=== PATIENT | male | born 1960 | race Caucasian/White ===

== ENCOUNTER 2016-09-05 20:59 | Inpatient (IN) | payer MEDICAID ==
[~2016-09-05 20:59] MED LIST: MORPHINE SULFATE 4 MG/ML SYRINGE IV PRN; NALOXONE 0.4 MG/ML 1 ML VIAL IV PRN; SODIUM CHLORIDE 0.9% 250 ML IV ONE
[2016-09-05] MEDS ORDERED: ASPIRIN 81 MG CHEW PO STA (21:19)
[2016-09-05] MEDS ORDERED: MORPHINE SULFATE 4 MG/ML SYRINGE IVP STA ×2 (21:19→21:28)
[2016-09-05] MEDS ORDERED: ATORVASTATIN 80 MG TAB PO STA (21:19)
[2016-09-05] MEDS ORDERED: NITROGLYCERIN OINT 1 INCH/GM PACKET TOPICAL STA (21:19)
[2016-09-05] MEDS ORDERED: HEPARIN SODIUM,PORCINE 5,000 UNIT/ML 1 ML VIAL IV STA (21:19)
[2016-09-05] MEDS: SODIUM CHLORIDE 0.9% 500 ML IV STA ×2 (21:24→21:30)
[2016-09-05] MEDS ORDERED: SODIUM CHLORIDE 0.9% 500 ML IV STA (21:28)
[2016-09-05 21:32] LABS: Aty Lym Flag Slight; CH 30.1; CHCM 34.2; HCT 43.3 % (39.0-53.0); HDW 2.45; HGB 14.6 gm/dL (13.0-17.5); MCH 29.9 pg (25.0-35.0); MCHC 33.7 g/dL (31.0-37.0); MCV 88.5 fL (80.0-100.0); Mean Platelet Volume 6.9; WBC 6.2 k/uL (3.8-10.6); WBC (Perox) 6.22
--- NOTE | 2016-09-05 21:32 | ED ---
Chest Pain HPI - General Chief Complaint: Chest Pain Stated Complaint: Chest Pain Source: patient Mode of arrival: wheelchair Limitations: no limitations - History of Present Illness Initial Comments: Had a chest And 7 PM today chest pain now into his neck he got nauseous cold sweats denies any previous history of heart disease no history of MIs no stents no history of congestive heart failure, only surgery he had in the past several was a left clavicle he had internal fixation for his left clavicle area denies any headaches no neck stiffness no abdominal pain no frequency urgency dysuria no signs of any TIA or CVA - Related Data Home Medications Medication Instructions Recorded Confirmed Lisinopril [Zestril] 10 mg PO HS 11/08/15 09/05/16 Simvastatin [Zocor] 40 mg PO HS 11/08/15 09/05/16 Allergies Allergy/AdvReac Type Severity Reaction Status Date / Time No Known Allergies Allergy Verified 09/05/16 21:46 Review of Systems ROS Statement: Those systems with pertinent positive or pertinent negative responses have been documented in the HPI. ROS Other: All systems not noted in ROS Statement are negative. EKG Findings - EKG Comments: EKG Findings:: , EKG shows a ventricular rate of 46 OR interval is 176 QRS duration is 100 QT/QTc is 4/393, review of this EKG shows a STEMI in lead II, III, and F he aVF also noticed some T-wave inversion in lead 1 and lead 2 and lead [address] depression as well also ST depression in V4 Past Medical History Past Medical History: Hyperlipidemia, Hypertension History of Any Multi-Drug Resistant Organisms: None Reported Past Surgical History: Orthopedic Surgery Additional Past Surgical History / Comment(s): LEFT CLAVICLE SX Past Anesthesia/Blood Transfusion Reactions: No Reported Reaction Past Psychological History: No Psychological Hx Reported Smoking Status: Former smoker Past Alcohol Use History: Occasional Additional Past Alcohol Use History / Comment(s): QUIT SMOKING 2008, STARTED AGE 23 (1983) SMOKED 1PPD Past Drug Use History: None Reported General Exam - General Exam Comments Initial Comments: General: The patient is awake and alert, in no distress, and does not appear acutely ill. In severe distress Skin: Skin is warm and dry and no rashes or lesions are noted. Eye: Pupils are equal, round and reactive to light, extra-ocular movements are intact; there is normal conjunctiva bilaterally. Ears, nose, mouth and throat: There are moist mucous membranes and no oral lesions. Neck: The neck is supple, there is no tenderness or JVD. Cardiovascular: There is a regular rate and rhythm. No murmur, rub or gallop is appreciated. Respiratory: To auscultation bilateral, no wheezing no rhonchi no distress respiratory jeffers noticed Gastrointestinal: Soft, non-distended, non-tender abdomen without masses or organomegaly noted. There is no rebound or guarding present. Bowel sounds are unremarkable. Back: There is no tenderness to palpation in the midline. There is no obvious deformity. Musculoskeletal: Normal ROM, no tenderness, There is no pedal edema. There is no calf tenderness or swelling. No cords were appreciated. Neurological: CN II-XII intact, Cranial nerves III through XII are intact. There are no obvious motor or sensory deficits. Coordination appears grossly intact. Speech is normal. Psychiatric: Cooperative, appropriate mood & affect, normal judgment. Limitations: no limitations Course Vital Signs 09/05/16 09/05/16 09/05/16 21:03 21:17 21:21 Temperature 97.2 F L Pulse Rate 58 L 64 73 Respiratory 18 18 18 Rate Blood Pressure 131/77 137/80 150/72 O2 Sat by Pulse 96 97 98 Oximetry 09/05/16 09/05/16 09/05/16 21:26 21:31 21:41 Temperature Pulse Rate 74 62 51 L Respiratory 18 20 18 Rate Blood Pressure 129/70 140/73 146/75 O2 Sat by Pulse 96 98 100 Oximetry 09/05/16 21:44 Temperature Pulse Rate 66 Respiratory 18 Rate Blood Pressure 146/78 O2 Sat by Pulse [address] Spoke with the Dr. Adams vocational nurse continuous absorption process operator and now be advised to activate the Phlebotomist Lab Assistant wouldn't give him aspirin he was giving a bolus of heparin 4000 units and infusion per Dr. Fox advised him to get her Lipitor 80 mg by mouth and Fritos a few repeat dose dosage of morphine to make him pain-free he is hemodynamically fine her chest x-ray and show any congestive heart failure and we are doing the serial EKGs - Reevaluation(s) Reevaluation #1: 09/05/16 21:36 Second EKG showed a ventricular rate of 61 OR interval 194 QRS duration 94 QT/ QTc is 426/426, examination of the second EKG showed changes got bit worse and to 3 and aVF and the ST depression and T-wave inversion in lead to be 1 week to week 3 V4 V5 and V6, worse on the first EKG Critical Care Time Total Critical Care Time: 35 Critical Care Time: As documented earlier serial EKGs aspirin morphine heparin bolus not the infusion cardiac cath lab radiology technologist is being activated as we as we speak he has some fluid bolus ongoing and the x-ray ruled out congestive heart failure Disposition Clinical Impression: STEMI (ST elevation myocardial infarction) Disposition: ADMITTED IP TO THIS HOSP Condition: Good Referrals: Imtiaz Sierra MD [Primary Care Provider] - 1-2 days
[2016-09-05] MEDS ORDERED: ONDANSETRON 4 MG/2 ML VIAL IVP STA (21:35)
[2016-09-05 21:37] LABS: ALT 43 U/L (21-72); AST 18 U/L (17-59); Alkaline Phosphatase 65 U/L (38-126); Anion Gap 11 mmol/L; Blood Urea Nitrogen 18 mg/dL (9-20); Calcium 9.6 mg/dL (8.4-10.2); Carbon Dioxide 25 mmol/L (22-30); Chloride 101 mmol/L (98-107); Glucose 133 mg/dL (74-99); Non-African American GFR(MDRD) >60 (>60 ml/min/1.73 sqM); Potassium 3.5 mmol/L (3.5-5.1); Sodium 137 mmol/L (137-145); Total Bilirubin 1.3 mg/dL (0.2-1.3); Total Protein 7.3 g/dL (6.3-8.2)
[2016-09-05 21:46] LABS: INR 1.1 (<1.1); Prothrombin Time 10.7 sec (9.0-12.0)
--- NOTE | 2016-09-05 21:46 | XR ---
EXAMINATION TYPE: XR chest 1V portable DATE OF EXAM: 09/05/2016 9:30 PM COMPARISON: NONE HISTORY: Chest pain TECHNIQUE: Single frontal view of the chest is obtained. FINDINGS: There is no heart failure nor confluent pneumonic infiltrate. There are chest leads. Costo phrenic angles are clear. There is a left sided clavicle plate with screws fixing an old fracture. IMPRESSION: No active cardiopulmonary disease.
[2016-09-05 21:50] LABS: Add Differential Manual Differential; Partial Thromboplastin Time 20.3 sec (22.0-30.0)
[2016-09-05 21:55] LABS: Manual Review Performed; Nucleated Red Blood Cells 0 /100 WBC (0-0); Polychromasia Present; Total Cells Counted 100
[2016-09-05] MEDS ORDERED: fentaNYL (PF) 50 MCG/ML 2 ML AMP ONE (21:58)
[2016-09-05] MEDS ORDERED: LIDOCAINE 2% INJ 20 MG/ML SQ ONE (21:59)
[2016-09-05] MEDS ORDERED: fentaNYL (PF) 50 MCG/ML 2 ML AMP IV ONE (22:00)
[2016-09-05 22:02] LABS: Creatine Kinase MB 1.2 ng/mL (0.0-2.4)
[2016-09-05] MEDS ORDERED: SODIUM CHLORIDE 0.9% 1,000 ML IV ONE (22:02)
[2016-09-05 22:03] LABS: Troponin I 0.101 ng/mL (0.000-0.034)
[2016-09-05] MEDS ORDERED: BIVALIRUDIN 250 MG in SODIUM CHLORIDE 0.9% 50 ML IV ONE (22:06)
[2016-09-05] MEDS ORDERED: BIVALIRUDIN BOLUS 250 MG/50 ML IV ONE (22:06)
[2016-09-05] MEDS ORDERED: PRASUGREL 10 MG TAB ONE (22:07)
[2016-09-05] MEDS ORDERED: PRASUGREL 10 MG TAB PO ONE (22:08)
[2016-09-05] MEDS ORDERED: NITROGLYCERIN 1000MCG/10ML SYRINGE INTRACORON ONE (22:20)
[2016-09-05] MEDS ORDERED: NITROGLYCERIN SL TABS 0.4 MG TAB SUBLINGUAL PRN (22:40)
[2016-09-05] MEDS ORDERED: MAG HYDROX/AL HYDROX/SIMETH 30 ML CUP PO PRN (22:40)
[2016-09-05] MEDS ORDERED: ATROPINE SULFATE 0.1 MG/ML 10ML SYRINGE IV PRN (22:40)
[2016-09-05] MEDS ORDERED: RX INFO: IV CONTRAST WAS GIVEN 1 EACH MISC MISCELLANE PRN (22:40)
[2016-09-05] MEDS ORDERED: IODIXANOL 320 MG/ML 100 ML INTRAARTER ONE (22:44)
[2016-09-05] MEDS ORDERED: SODIUM CHLORIDE 0.9% 1,000 ML IV SCH (22:45)
[2016-09-05] MEDS ORDERED: METOPROLOL TARTRATE 25 MG TAB PO SCH (22:45)
[2016-09-05] MEDS ORDERED: ACETAMINOPHEN TAB 325 MG TAB PO PRN (22:53)
[2016-09-05] MEDS ORDERED: MORPHINE SULFATE 4 MG/ML SYRINGE IV PRN (22:53)
[2016-09-05] MEDS ORDERED: NALOXONE 0.4 MG/ML 1 ML VIAL IV PRN (22:53)
[2016-09-05] MEDS ORDERED: NITROGLYCERIN SL TABS 0.4 MG TAB SUBLINGUAL ONE ×3 (23:21→23:36)
[2016-09-05] MEDS ORDERED: HEPARIN SODIUM 1,000 UNIT/ML VIAL ONE ×2 (23:27→23:49)
[2016-09-05] MEDS ORDERED: LIDOCAINE 2% INJ 20 MG/ML (20 ML MDV) ONE (23:45)
[2016-09-05] MEDS ORDERED: HEPARIN SODIUM 1,000 UNIT/ML VIAL IV ONE (23:52)
[2016-09-05] MEDS ORDERED: TIROFIBAN 12.5MG-250ML NS 250 ML IV ONE (23:53)
[2016-09-05] MEDS ORDERED: TIROFIBAN BOLUS 12.5MG/250 ML BAG IV ONE (23:59)
[2016-09-06] MEDS ORDERED: MAG HYDROX/AL HYDROX/SIMETH 30 ML CUP PO PRN (00:25)
[2016-09-06] MEDS ORDERED: ATROPINE SULFATE 0.1 MG/ML 10ML SYRINGE IV PRN (00:25)
[2016-09-06] MEDS ORDERED: NITROGLYCERIN SL TABS 0.4 MG TAB SUBLINGUAL PRN (00:25)
[2016-09-06] MEDS ORDERED: RX INFO: IV CONTRAST WAS GIVEN 1 EACH MISC MISCELLANE PRN (00:25)
[2016-09-06] MEDS ORDERED: SODIUM CHLORIDE 0.9% 1,000 ML IV SCH (00:30)
[2016-09-06] MEDS ORDERED: IOHEXOL 350 MG/ML 100 ML BOTTLE INJ ONE (00:31)
[2016-09-06 01:29] VITALS: BMI 29.5
[2016-09-06] MEDS ORDERED: ATROPINE SULFATE 0.1 MG/ML 10ML SYRINGE ONE (02:39)
[2016-09-06] MEDS: TIROFIBAN 12.5MG-250ML NS 250 ML IV SCH ×2 (03:30→06:43)
[2016-09-06 04:13] LABS: Basophils % (A) 0 %; CH 30.4; CHCM 34.1; Eosinophils % (A) 0 %; HCT 36.8 % (39.0-53.0); HDW 2.44; HGB 12.4 gm/dL (13.0-17.5); Luc # (Auto) 0.15; Luc % (Auto) 2; Lymphocytes # (A) 1.1 k/uL (1.0-4.8); Lymphocytes % (A) 13 %; MCH 30.1 pg (25.0-35.0); MCHC 33.6 g/dL (31.0-37.0); MCV 89.7 fL (80.0-100.0); Mean Platelet Volume 7.4; Monocytes # (A) 0.2 k/uL (0-1.0); Monocytes % (A) 3 %; Neutrophils # (A) 6.4 k/uL (1.3-7.7); Neutrophils % (A) 82 %; WBC 7.9 k/uL (3.8-10.6); WBC (Perox) 8.51
[2016-09-06 04:25] LABS: Anion Gap 11 mmol/L; Blood Urea Nitrogen 16 mg/dL (9-20); Calcium 8.9 mg/dL (8.4-10.2); Carbon Dioxide 22 mmol/L (22-30); Chloride 101 mmol/L (98-107); Glucose 170 mg/dL (74-99); Non-African American GFR(MDRD) >60 (>60 ml/min/1.73 sqM); Potassium 4.2 mmol/L (3.5-5.1); Sodium 134 mmol/L (137-145)
[2016-09-06] MEDS ORDERED: ATORVASTATIN 80 MG TAB PO SCH ×2 (09:00)
[2016-09-06] MEDS ORDERED: PRASUGREL 10 MG TAB PO SCH ×2 (09:00)
[2016-09-06] MEDS ORDERED: LISINOPRIL 2.5 MG TAB PO SCH ×2 (09:00)
[2016-09-06] MEDS ORDERED: ASPIRIN 81 MG CHEW PO SCH ×2 (09:00)
[2016-09-06] MEDS ORDERED: METOPROLOL TARTRATE 25 MG TAB PO SCH (09:00)
[2016-09-06] MEDS ORDERED: PANTOPRAZOLE 40 MG/10 ML VIAL IV SCH ×2 (09:00)
[2016-09-06] MEDS: ATORVASTATIN 80 MG TAB PO SCH (09:12)
[2016-09-06] MEDS: LISINOPRIL 5 MG TAB PO SCH (09:13)
[2016-09-06] MEDS: METOPROLOL TARTRATE 25 MG TAB PO SCH (09:13)
[2016-09-06] MEDS: ASPIRIN 81 MG CHEW PO SCH (09:13)
[2016-09-06] MEDS: PRASUGREL 10 MG TAB PO SCH (09:14)
--- NOTE | 2016-09-06 10:30 | ECHOF ---
Referral Reason:mi MEASUREMENTS -------- HEIGHT: 180.3 cm WEIGHT: 95.7 kg BP: 114/67 IVSd: 1.1 cm (0.6 - 1.1) LVIDd: 3.9 cm (3.9 - 5.3) LVPWd: 1.1 cm (0.6 - 1.1) IVSs: 1.8 cm LVIDs: 2.3 cm LVPWs: 1.8 cm Ao Diam: 3.0 cm (2.0 - 3.7) AV Cusp: 2.3 cm (1.5 - 2.6) LA Diam: 3.1 cm (2.7 - 3.8) MV EXCURSION: 19.089 mm (> 18.000) MV EF SLOPE: 146 mm/s (70 - 150) EPSS: 0.7 cm MV E Codey: 0.90 m/s MV DecT: 138 ms MV A Codey: 0.62 m/s MV E/A Ratio: 1.44 RAP: 5.00 mmHg RVSP: 16.80 mmHg FINDINGS -------- Sinus rhythm. This was a technically good study. The left ventricular size is normal. Left ventricular wall thickness is normal. Overall left ventricular systolic function is mildly impaired with, an EF between 45 - 50 %. Basal inferolateral hypokinesis. The right ventricle is normal in size and function. The left atrium is normal in size. The right atrium is normal in size. The aortic valve is trileaflet, and appears structurally normal. No aortic stenosis or regurgitation. The mitral valve is normal. There is trace mitral regurgitation. Trace tricuspid regurgitation present. The right ventricular systolic pressure, as measured by Doppler, is 16.80mmHg. There is no pulmonic regurgitation present. The aortic root size is normal. There is no pericardial effusion. CONCLUSIONS -------- 1. Sinus rhythm. 2. The right ventricular systolic pressure, as measured by Doppler, is 16.80mmHg. 3. There is no pulmonic regurgitation present. 4. The aortic root size is normal. 5. There is no pericardial effusion. 6. This was a technically good study. 7. Left ventricular wall thickness is normal. 8. Overall left ventricular systolic function is mildly impaired with, an EF between 45 - 50 %. 9. Basal inferolateral hypokinesis. 10. The left atrium is normal in size. 11. The aortic valve is trileaflet, and appears structurally normal. No aortic stenosis or regurgitation. 12. There is trace mitral regurgitation. 13. Trace tricuspid regurgitation present. BELT WORKER: Jacquelin Crawford RDCS
--- NOTE | 2016-09-06 10:38 | P.CNPUL ---
History of Present Illness Consult date: 09/06/16 Requesting physician: Marce Lawton Reason for consult: other (acute ST elevation myocardial infarction) Chief complaint: chest pain, angina History of present illness: this is a 55-year-old white male, presented to the ER with acute one hour history of stabbing chest pain at the base of his neck. Associated with diaphoresis, left arm numbness, and upon presentation patient was found to have ST elevation myocardial infarction in late to 3 aVF and some T-wave inversion in lead 12 and [address] depression in V4. Patient underwent cardiac catheterization upon presentation, and he underwent stenting of 2 blood vessels according to the patient, I am certain must have been the RCA for sure. No records in the chart at this point of the detailed cardiac cath procedure. I was notified about this patient by the ER physician and field marketing director hours, and I was made aware that the patient will be going from the Therapist Asst up to the intensive care unit. Upon my evaluation this morning, patient seems to be doing well, he is pain free, denies any nausea no vomiting no diaphoresis no headaches no blurred vision no dizziness no nausea no vomiting no abdominal pain. Patient is hemodynamically stable, sitting in bed, chest x-ray showed no evidence of any pulmonary edema or infiltrate. Patient had remote smoking history, quit many years ago, no family history of premature coronary artery disease, he does not drink any alcohol, is not diabetic, he is known to have history of hypertension and hypercholesterolemia. Patient is normally on this in September and simvastatin. And his primary care physician is Dr. cunningham Review of Systems 14 point review of systems were obtained, please refer to pertinent positives and negatives in HPI Past Medical History Past Medical History: Hyperlipidemia, Hypertension History of Any Multi-Drug Resistant Organisms: None Reported Past Surgical History: Orthopedic Surgery Additional Past Surgical History / Comment(s): LEFT CLAVICLE SX Past Anesthesia/Blood Transfusion Reactions: No Reported Reaction Past Psychological History: No Psychological Hx Reported Smoking Status: Former smoker Past Alcohol Use History: Occasional Additional Past Alcohol Use History / Comment(s): QUIT SMOKING 2008, STARTED AGE 23 (1981) SMOKED 1PPD Past Drug Use History: None Reported Medications and Allergies Home Medications Medication Instructions Recorded Confirmed Type Lisinopril [Zestril] 10 mg PO HS 11/08/15 09/05/16 History Simvastatin [Zocor] 40 mg PO HS 11/08/15 09/05/16 History Allergies Allergy/AdvReac Type Severity Reaction Status Date / Time No Known Allergies Allergy Verified 09/05/16 21:46 Physical Exam Vitals: Vital Signs Temp Pulse Resp BP Pulse Ox 09/06/16 05:15 60 14 114/67 96 09/06/16 05:00 57 L 12 107/63 97 09/06/16 04:45 58 L 12 106/62 97 09/06/16 04:30 63 13 104/54 95 09/06/16 04:15 61 12 112/63 96 09/06/16 04:00 98.0 F 60 17 111/59 96 09/06/16 03:45 64 12 105/63 96 09/06/16 03:30 65 17 114/65 97 09/06/16 03:15 63 17 106/56 95 09/06/16 03:00 66 15 108/58 96 09/06/16 02:45 65 14 112/61 96 09/06/16 02:30 67 12 115/64 96 09/06/16 02:15 64 12 118/67 97 09/06/16 02:00 62 12 104/63 96 09/06/16 01:45 63 14 126/70 96 09/06/16 01:30 70 14 134/73 97 09/06/16 01:15 71 15 122/67 96 09/06/16 01:00 69 13 139/73 96 09/06/16 00:55 20 96 Intake and Output 09/05/16 09/06/16 09/06/16 22:59 06:59 14:59 Intake Total 355 Output Total 500 Balance -145 Intake: IV 55 Intake, IV Titration 300 Amount Sodium Chloride 0.9% 1, 300 000 ml @ 100 mls/hr IV . Q10H [facility] Rx#:[id number] Output: Urine 500 Other: Weight 96.1 kg Physical Exam: Revealed a 55-year-old in no distress. HEENT:[Neck is supple.] [No neck masses.] [No thyromegaly.] [No JVD.] Chest: [Clear throughout, no crackles, no rhonchi, no wheezes.] Cardiac Exam: [Normal S1 and S2, no S3 gallop, no murmur.] Abdomen: [Soft, nontender, no megaly, no rebound, no guarding, normal bowel sounds.] Extremities: [No clubbing, no edema, no cyanosis.] Neurological Exam: [No focal neurologic deficit.] Results - Laboratory Findings CBC and BMP: 09/06/16 03:55 09/06/16 03:55 PT/INR, D-dimer PT 10.7 sec (9.0-12.0) 09/05/16 21:17 INR 1.1 (<1.1) 09/05/16 21:17 Abnormal lab findings: Abnormal Labs 09/06/16 09/06/16 09/06/16 03:55 03:55 03:55 RBC 4.10 L Hgb 12.4 L Hct 36.8 L Sodium 134 L Glucose 170 H Troponin I 1.360 H* 09/06/16 09:03 RBC Hgb Hct Sodium Glucose Troponin I 7.110 H* - Diagnostic Findings Chest x-ray: image reviewed (no evidence of active disease noted on the admission chest x-ray.) Assessment and Plan Plan: impression: [address] elevation myocardial infarction, status post stenting done by cardiology upon arrival to the ER. 2 history of hypertension, patient is maintained normally on this in September. 3 history of hypercholesterolemia, maintained on simvastatin. 4 remote smoking history, no symptoms to suggest underlying COPD. Patient quit smoking in 2008. Recommendation: Fully agree with the present treatment plan, patient is presently in the ICU, hemodynamically stable,reviewed all his meds including aspirin, Lipitor, Zestril, Protonix, Nitrostat, effient,Aggrastat,patient will likely be transferred to a cardiac floor in the next 24 hours. Not much to be added from my perspective at this point. Time with Patient: Greater than 30
--- NOTE | 2016-09-06 11:35 | CONS ---
Mr. Buck is a 55-year-old male with history of hypertension, hyperlipidemia, no prior history of coronary artery disease, who presented with symptoms of chest discomfort. This started about 2 hours prior to presentation to the emergency room of sudden onset, radiating to the neck and to the arms. In the emergency room, he was noted to have ST segment elevation involving the inferior leads. Patient has no prior documented history of cardiac disease. He is reasonably active physically, but recently has been complaining of dyspnea on exertion. He has no dizziness, palpitation or syncope. No PND, orthopnea or peripheral edema. His coronary risk factors are remarkable for hypertension and hyperlipidemia. He has stopped smoking many years ago. He has no diabetes. His medications at home include: 1. Lisinopril 10 mg daily and 2. Simvastatin 40 mg daily. There is no family history of premature coronary disease. REVIEW OF SYSTEMS: RESPIRATORY: There is no history of documented asthma, emphysema, bronchitis. GI: No GI bleeding. No peptic ulcer disease. : No dysuria or hematuria. NERVOUS: No stroke or seizure. PHYSICAL EXAMINATION: He is a 55-year-old male; alert, oriented, in no apparent distress. Blood pressure 120/70 with a heart rate in the 70s. HEAD: Normocephalic. EYES: Sclerae anicteric. NECK: Good carotid upstroke. No bruit. No jugular venous distention. LUNGS: Clear to auscultation. HEART: Regular rate and rhythm. S1, S2. No S3. No rub. ABDOMEN: Soft, nontender. Positive bowel sounds. No organomegaly. EXTREMITIES: No edema. Intact distal pulses. EKG revealed a sinus mechanism, rate of 66 with occasional PVCs, ST segment elevation in leads II, aVF with ST segment depression from V1 through V6 and I and aVL. IMPRESSION: 1. Acute ST segment elevation myocardial infarction in the inferior wall. 2. Hypertension. 3. Hyperlipidemia. RECOMMENDATIONS: In view of finding anatomy, I have recommended proceeding with emergent coronary angiography. The procedure, as well as the risks, benefits and complications, was discussed with the patient, who is in full understanding and agreement.
--- NOTE | 2016-09-06 11:39 | P.PN ---
Subjective Principal diagnosis: acute inferior STEMI this is a pleasant 55-year-old gentleman who presented to the hospital with a chest discomfort and was diagnosed with acute inferior ST elevation myocardial infarction. He underwent a heart catheterization and stenting of the RCA. Few hours after the procedure the patient had an acute stent thrombosis. He underwent successful stenting again of the RCA. The patient was transferred to the intensive care unit and was started on IIb IIIa inhibitors. From the cardiac vascular standpoint overview, he denies having any chest pain or discomfort or difficulty breathing at this point. The right groin is soft with mild tenderness. He underwent an echocardiogram which showed mildly impaired LV function with an ejection fraction between 45-50%. We will continue the patient on the current medical treatment which included dual antiplatelet therapy and statin as well as IIb IIIa inhibitors. Objective - Vital Signs Vital signs: Vital Signs Temp 98.0 F 09/06/16 04:00 Pulse 60 09/06/16 05:15 Resp 14 09/06/16 05:15 BP 114/67 09/06/16 05:15 Pulse Ox 96 09/06/16 05:15 Intake & Output 09/05/16 09/06/16 09/06/16 18:59 06:59 18:59 Intake Total 355 Output Total 500 Balance -145 Weight 96.1 kg Intake: IV 55 Intake, IV Titration 300 Amount Sodium Chloride 0.9% 1, 300 000 ml @ 100 mls/hr IV . Q10H [facility] Rx#:[id number] Output: Urine 500 - Constitutional General appearance: Present: no acute distress - Respiratory Respiratory: bilateral: CTA - Cardiovascular Rhythm: regular Heart sounds: normal: S1, S2 - Labs CBC & Chem 7: 09/06/16 03:55 09/06/16 03:55 Labs: Abnormal Lab Results - Last 24 Hours (Table) 09/06/16 09/06/16 09/06/16 Range/Units 03:55 03:55 03:55 RBC 4.10 L (4.30-5.90) m/uL Hgb 12.4 L (13.0-17.5) gm/dL Hct 36.8 L (39.0-53.0) % Sodium 134 L (137-145) mmol/L Glucose 170 H (74-99) mg/dL Troponin I 1.360 H* (0.000-0.034) ng/mL 09/06/16 Range/Units 09:03 RBC (4.30-5.90) m/uL Hgb (13.0-17.5) gm/dL Hct (39.0-53.0) % Sodium (137-145) mmol/L Glucose (74-99) mg/dL Troponin I 7.110 H* (0.000-0.034) ng/mL Assessment and Plan Plan: assessment #[address] elevation myocardial infarction #2 mild impaired LV function with an ejection fraction between 45-50% Plan Continue the current medical treatment Continue to be IIIa inhibitors until 2:00 this afternoon Risk factors modifications Follow-up with the patient
--- NOTE | 2016-09-06 12:34 | CC ---
DATE OF SERVICE: 09/05/2016 Mr. Buck is a 55-year-old male with a known history of hypertension, hyperlipidemia, who presented with symptoms of chest discomfort and evidence consistent with ST elevation myocardial infarction in the inferior leads. In view of that, recommendation made regarding coronary angiography. The procedure as well as the risks and complications were discussed with the patient who is in full understanding and agreement. PROCEDURE: Patient was brought to the laboratory assistant and received fentanyl and Benadryl after obtaining moderate conscious sedation state, using Xylocaine anesthesia and Seldinger technique, a 6 B[place]udian sheath was introduced in right femoral artery. Selective right and left coronary angiography were performed using 6 [place]udian 4 bend right and left Wendy catheters and 6 B[place]udian FR4 guiding catheter. Images of the coronary arteries were obtained. Following that, angioplasty and stenting of the right coronary artery were performed. Following that, a 6 B[place]ian tight pigtail catheter was introduced into the left ventricle and a 30 degree HOOKS view of the left ventricle was obtained. At the end of the procedure, catheter and sheath were removed and hemostasis was obtained was deployment of an Angio-Seal. There were no immediate complications. Patient is returned to his room in stable condition. FINDINGS: LEFT MAIN: This is a large-size vessel bifurcating into circumflex and left anterior descending coronary artery, left main coronary artery is without any significant obstructive coronary artery disease. LEFT ANTERIOR DESCENDING CORONARY ARTERY: This is a large-size vessel reaching toward the apex with a wrap around the apex segment, giving rise to a large diagonal branch. The left anterior descending coronary artery as well as its branches have no evidence of obstructive coronary artery disease. LEFT CIRCUMFLEX: This is a large nondominant vessel, giving rise to a large obtuse marginal branch. The left circumflex as well as its branches has no evidence of obstructive process. RIGHT CORONARY ARTERY: This vessel has a 99% stenosis in the mid segment with minimal antegrade flow. LEFT VENTRICULOGRAM: Left ventriculogram was performed in 30 degrees HOOKS view and revealed basal inferior wall hypokinesis. The ejection fraction is 45% to 50%. There was no significant mitral regurgitation. HEMODYNAMICS: There was no gradient across the aortic valve. The left ventricular end-diastolic pressure was 18 mmHg. CONCLUSION: 1. Subtotally occluded mid right coronary artery. 2. Mildly impaired left ventricular systolic function. RECOMMENDATIONS: In view of the findings and anatomy, I have recommended proceeding with angioplasty and stenting of the right coronary artery. The procedure as well as risks and complications were discussed with the patient who is in full understanding and agreement.
--- NOTE | 2016-09-06 12:38 | PTCA ---
DATE OF SERVICE: 09/05/2016 Mr. Buck is a 55-year-old male with a history of hypertension, hyperlipidemia, who presented with an acute ST segment elevation myocardial infarction in the inferior leads and underwent cardiac catheterization, was found to have subtotally occluded mid right coronary artery. In view of that, recommendation made regarding angioplasty and stenting. The procedure as well as risks and complications were discussed with the patient who is in full understanding and agreement. PROCEDURE: Using the 6 Liberian FR4 guiding catheter and after cannulating the right coronary ostium 0.014 balanced medium weight J-wire was advanced across the lesion, positioned distally, then export catheter was introduced. One run was performed. Following that, a 3.5 x 18 mm Xience Alpine stent was deployed. It was dilated at 14 atmospheres. Following that the balloon was removed and a 2.5 x 12 mm Trek balloon was advanced over the wire to the PLV where there was a residual clot. Without inflation of the balloon, the balloon was passed back and forth a few times, subsequently removed. Following that, after appropriate wait, the wire was withdrawn back in the guiding catheter. Images were obtained and repeated. Those images revealed stable successful stenting. Following that, left ventriculogram was performed. Following that, catheter and sheaths were removed. Hemostasis was obtained with deployment of an Angio-Seal. There were no immediate complications. Patient is returned to his room in stable condition. Of note, the patient had resolution of his chest discomfort as well as EKG changes at the end of the procedure. He received Angiomax as per protocol as well as oral loading dose of Effient. FINDINGS: Successful stenting of the mid right coronary artery with reduction in stenosis from 99% to 0%. RECOMMENDATION: Patient will be continued on aspirin, Effient, beta michelle, RENA inhibitor and statin. The importance of dual antiplatelet treatment were discussed with the patient and his family who is in full understanding and agreement. The duration of procedure is 71 minutes.
--- NOTE | 2016-09-06 12:41 | LTR ---
September 05, 2016 RE: Imtiaz Buck Dear Dr. Sierra: I had the pleasure of performing cardiac catheterization and coronary angioplasty and stenting on Mr. Buck at [facility] on September 05 and a full copy of procedure note will be forwarded to you. In brief, work he was found to have subtotally occluded mid right coronary artery, underwent successful stenting of that vessel using a drug-eluting stent. I am hopeful that this procedure will stabilized his status. Thank you for allowing me to participate in his care. Please feel free to call for questions. Sincerely, MARLON RUSSELL MD
--- NOTE | 2016-09-06 12:45 | PTCA ---
DATE OF SERVICE: Mr. Buck is a 55-year-old male who presented with an acute inferior myocardial infarction, underwent stenting of his right coronary artery. 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 After finishing the procedure, he was completely pain-free with resolution of his ST segment elevation, when he started to complain of chest discomfort again and there was re-elevation of his ST segment. In view of that, recommendation was made regarding repeat coronary angiography and angioplasty and stenting. The procedure as well as the risks and complications were discussed with the patient, who is in full understanding and agreement. PROCEDURE: Using Xylocaine anesthesia and Seldinger technique, a 6 Yoruba sheath was introduced into the left femoral artery. A 6 Yoruba FR4 guiding catheter was introduced into the system. After cannulating the right coronary ostium a 0.014 balanced medium weight J-wire was advanced across the lesion, positioned distally, then an Alma catheter was advanced. One run was done with removal of thrombotic material. Following that, a 3.0 x 15 mm Trek balloon was advanced and 2 inflations at a maximum of 14 atmospheres were done. Following that, the balloon was removed and a 3.5 x 15 mm Alpine Xience stent was deployed proximal to the first one and was dilated at 14 atmospheres and then inflation overlapping segment was done. Following that, the balloon and the guidewire were withdrawn back in the guiding catheter. Images were obtained. Repeated. Those images revealed stable successful stenting. At that point, the guiding catheter, the balloon and the guidewire were removed. The sheath was sutured in place. The patient is returned to his room in stable condition. Of note, patient was pain-free at the end of procedure, with resolution of his ST segment elevation. He has received heparin at 50 units/kg intravenously bolus as well as Aggrastat per protocol. RESULT: Successful stenting of the acute thrombosis of the mid right coronary artery with reduction in stenosis from 100 percent to 0%. RECOMMENDATION: Patient will be continued on aspirin, Effient, beta michelle, RENA inhibitor and statin. The importance of dual antiplatelet treatment was discussed with the patient and his family who was in full understanding and agreement. He will continue on the Aggrastat for a total of 18 hours.
--- NOTE | 2016-09-06 13:23 | PN ---
Mr. Buck is a 55-year-old male with known history of hypertension, hyperlipidemia, who presented with an acute inferior wall myocardial infarction and underwent stenting of the right coronary artery. He had an acute thrombosis shortly after and had recanalization of that vessel. He is doing quite well this morning. His breathing is stable, denying any chest pain. No dizziness. No palpitation. He denies any nausea. Hemodynamically stable. He is in sinus mechanism with no evidence of ventricle ectopic activity. He continues to be on Aggrastat drip. Otherwise, he is on aspirin once a day, Effient 10 mg daily, Lipitor 80 mg daily, lisinopril 5 mg daily and metoprolol 25 mg twice a day. PHYSICAL EXAMINATION: Blood pressure 114/60 with a heart rate in 60s. LUNGS: Clear. HEART: Regular rate rhythm. S1, S2, no S3, with systolic murmur. No diastolic murmur. No rub. ABDOMEN: Soft, nontender. EXTREMITIES: No edema. Right groin hematoma. Left groin with FemoStop in place. EKG reveals sinus mechanism, normal axis and intervals with no significant ST segment changes. BUN and creatinine 16 and 0.8. Troponin 1.3 and hemoglobin of 12.4. IMPRESSION: 1. Status post acute myocardial infarction with acute thrombosis and stenting of the right coronary artery. 2. Hypertension. RECOMMENDATIONS: Patient will continue on Aggrastat for a total of 18 hours. An echocardiogram with Doppler will be obtained today. His level of activity will be increased gradually. Depending on his progress, he may be able to transferred to the telemetry floor in the afternoon.
--- NOTE | 2016-09-06 14:37 | P.HPIM ---
History of Present Illness H&P Date: 09/06/16 Chief Complaint: Chest pain found to have a STEMI This is a pleasant 54-year-old gentleman patient of Dr. Sierra, he has underlying history of hyperlipidemia hypertension was her arthritis admitted from the emergency room with acute complaints of chest discomfort with regurgitation to the neck and the left arm, this started at 7 PM patient was getting off work however he had completed lifting boxes approximately between 40 -100 pounds which is his routine, chest pressure was persistent until he was evaluated in emergency room and was found to have STEMI involving the inferior leads. This is his first episode all of NE patient did not have any previous history of CHF diabetes mellitus CAD no previous arrhythmias, and a previous smoker, he quit 11 years ago. He was emergently sent to [facility] requiring angioplasty and stenting off the subtotally occluded mid right coronary artery using 3.5 x 18 mm X Xeince stent on 09/05/2016. 2 hours later patient complained off chest discomfort again and was found to have another with elevation of his ST segment, a repeat angiography with removal off thrombotic material and another X he had stent was deployed proximal to the first one. Subsequent he had successful stenting with reduction of coronary artery stenosis from 100% to 0, patient is placed on aspirin and Effient beta michelle RENA inhibitor and statin, he is maintain on Aggrastat for a total of 18 hours from the procedure . Patient remains in ICU currently stable without any chest discomfort, vital signs stable,. He underwent an echocardiogram which showed mildly impaired LV function with ejection fraction of 45-50% sinus rhythm there is basal inferolateral hypokinesis trace MR and trace TR normal aortic valve Review of Systems Constitutional: Reports as per HPI, Denies anorexia, Denies chills, Denies chronic headaches, Denies chronic pain, Denies daytime sleepiness, Denies fatigue, Denies fever, Denies lethargy, Denies malaise, Denies night sweats, Denies poor appetite, Denies sweats, Denies weakness, Denies weight gain, Denies weight loss Ears, nose, mouth and throat: Reports as per HPI, Denies ant. neck pain, Denies bleeding gums, Denies dental pain, Denies dysphagia, Denies epistaxis, Denies headache, Denies hoarseness, Denies mouth pain, Denies nasal congestion, Denies nasal discharge, Denies neck fullness/pressure, Denies neck lump, Denies nose pain, Denies odynophagia, Denies post-nasal drip, Denies sinus pain, Denies sinus pressure, Denies swelling in mouth, Denies swelling in throat, Denies sore throat, Denies vertigo, Denies voice changes Cardiovascular: Reports as per HPI, Reports chest pain, Denies claudication, Denies decreased exercise tolerance, Denies dyspnea on exertion, Denies edema, Denies high blood pressure, Denies irregular heart beat, Denies leg edema, Denies lightheadedness, Denies orthopnea, Denies palpitations, Denies paroxysmal nocturnal dyspnea, Denies phlebitis, Denies rapid heart beat, Denies shortness of breath, Denies syncope Respiratory: Reports as per HPI, Denies congestion, Denies cough, Denies cough with sputum, Denies dyspnea, Denies excessive sputum, Denies hemoptysis, Denies home oxygen, Denies pain, Denies pain on inspiration, Denies pleurisy, Denies respiratory infections, Denies sleep apnea, Denies snoring, Denies wheezing Gastrointestinal: Reports as per HPI, Denies abdominal pain, Denies belching, Denies bloating, Denies BRBPR, Denies change in bowel habits, Denies coffee ground emesis, Denies constipation, Denies diarrhea, Denies dyspepsia, Denies early satiety, Denies excessive gas, Denies heartburn, Denies hematemesis, Denies hematochezia, Denies indigestion, Denies jaundice, Denies lactose intolerance, Denies loss of appetite, Denies melena, Denies nausea, Denies vomiting Genitourinary: Reports as per HPI, Denies decreased libido, Denies difficulties fathering child, Denies discharge, Denies dysuria, Denies erectile dysfunction, Denies flank pain, Denies genital pain, Denies genital sores, Denies hematuria, Denies impotence, Denies incontinence, Denies kidney stones, Denies nocturia, Denies polyuria, Denies testicular lump, Denies testicular pain, Denies urinary frequency, Denies urinary hesitancy, Denies urinary retention Musculoskeletal: Reports as per HPI, Denies arm numbness/tingling, Denies atrophy, Denies fractures, Denies frequent falls, Denies gait dysfunction, Denies hot joints, Denies leg numbness/tingling, Denies limitation of motion, Denies loss of height, Denies low back pain, Denies morning stiffness, Denies muscle cramps, Denies muscle weakness, Denies myalgias, Denies neck pain, Denies neck stiffness, Denies prior amputations, Denies redness of joints, Denies shooting arm pain, Denies shooting leg pain Integumentary: Reports as per HPI, Denies acne, Denies boils, Denies brittle nails, Denies change in hair/nails, Denies color changes, Denies darkening of skin, Denies depigmentation, Denies dryness, Denies foot/leg ulcers, Denies growths, Denies hirsutism, Denies lesions, Denies onychomycosis, Denies pruritus , Denies rash, Denies sores, Denies striae, Denies unusual bruising, Denies wounds Neurological: Reports as per HPI, Denies aphasia, Denies ataxia, Denies balance difficulties, Denies burning pain, Denies change in mentation, Denies change in smell/taste, Denies change in speech, Denies confusion, Denies convulsions, Denies double vision, Denies gait dysfunction, Denies head injury, Denies headaches, Denies hearing difficulties, Denies lack of coordination, Denies loss of vision, Denies memory loss, Denies migraines, Denies motor disturbance, Denies numbness, Denies paralysis, Denies paresthesias, Denies seizures, Denies sensory deficit, Denies spasticity, Denies syncope, Denies tic, Denies tingling , Denies transient paralysis, Denies tremors, Denies vertigo, Denies weakness, Denies visual changes Psychiatric: Reports as per HPI, Denies anhedonia, Denies anxiety, Denies anxiety attacks, Denies change in appetite, Denies change in libido, Denies change in sleep habits, Denies confusion, Denies depression, Denies difficulty concentrating, Denies disorientation, Denies hallucinations, Denies hopelessness , Denies hypersomnia, Denies insomnia, Denies irritability, Denies memory loss, Denies mood swings, Denies paranoia, Denies sadness/tearfulness, Denies sleep disturbances, Denies suicidal ideation Endocrine: Reports as per HPI, Denies cold intolerance, Denies deepening of the voice, Denies excessive sweating, Denies excessive thirst, Denies fatigue, Denies flushing, Denies heat intolerance, Denies high blood sugars, Denies increase in ring/shoe/hat size, Denies low blood sugars, Denies nocturia, Denies palpitations, Denies polydipsia, Denies polyphagia, Denies polyuria, Denies proptosis, Denies recent glucocorticoid use, Denies thyroid mass, Denies weight change Hematologic/Lymphatic: Reports as per HPI, Denies easy bleeding, Denies easy bruising, Denies lymphadenopathy, Denies lymphedema, Denies thrombophilia Allergic/Immunologic: Denies as per HPI, Denies allergic rhinitis, Denies anaphylaxis, Denies angioedema, Denies gluten intolerance, Denies persistent infections, Denies seasonal allergies, Denies urticaria, Denies wheezing Past Medical History Past Medical History: Hyperlipidemia, Hypertension, Osteoarthritis (OA) History of Any Multi-Drug Resistant Organisms: None Reported Past Surgical History: Orthopedic Surgery Additional Past Surgical History / Comment(s): LEFT CLAVICLE SX Past Anesthesia/Blood Transfusion Reactions: No Reported Reaction Past Psychological History: No Psychological Hx Reported Smoking Status: Former smoker (With 11 years ago, started at age [age] per day) Past Alcohol Use History: Occasional Additional Past Alcohol Use History / Comment(s): QUIT SMOKING 2008, STARTED AGE 23 (1983) SMOKED 1PPD Past Drug Use History: None Reported - Past Family History Father Family Medical History: Cancer (Lung cancer at age 74), CVA/TIA Mother Family Medical History: Cancer (Gallbladder cancer at age 45) Brother(s) Family Medical History: Coronary Artery Disease (CAD) (Rheumatic fever), Diabetes Mellitus Sister(s) Family Medical History: No Reported History Daughter(s) Family Medical History: No Reported History Son(s) Family Medical History: No Reported History Medications and Allergies Home Medications Medication Instructions Recorded Confirmed Type Lisinopril [Zestril] 10 mg PO HS 11/08/15 09/05/16 History Simvastatin [Zocor] 40 mg PO HS 11/08/15 09/05/16 History Allergies Allergy/AdvReac Type Severity Reaction Status Date / Time No Known Allergies Allergy Verified 09/05/16 21:46 Physical Exam Vitals: Vital Signs Temp Pulse Resp BP Pulse Ox 03/24/17 05:15 60 14 114/67 96 09/06/16 05:00 57 L 12 107/63 97 09/06/16 04:45 58 L 12 106/62 97 09/06/16 04:30 63 13 104/54 95 09/06/16 04:15 61 12 112/63 96 09/06/16 04:00 98.0 F 60 17 111/59 96 09/06/16 03:45 64 12 105/63 96 09/06/16 03:30 65 17 114/65 97 09/06/16 03:15 63 17 106/56 95 09/06/16 03:00 66 15 108/58 96 09/06/16 02:45 65 14 112/61 96 09/06/16 02:30 67 12 115/64 96 09/06/16 02:15 64 12 118/67 97 09/06/16 02:00 62 12 104/63 96 09/06/16 01:45 63 14 126/70 96 09/06/16 01:30 70 14 134/73 97 09/06/16 01:15 71 15 122/67 96 09/06/16 01:00 69 13 139/73 96 09/06/16 00:55 20 96 Intake and Output 09/05/16 09/06/16 09/06/16 22:59 06:59 14:59 Intake Total 355 Output Total 500 Balance -145 Intake: IV 55 Intake, IV Titration 300 Amount Sodium Chloride 0.9% 1, 300 000 ml @ 100 mls/hr IV . Q10H [facility] Rx#:[id number] Output: Urine 500 Other: Weight 96.1 kg - Constitutional General appearance: average body habitus, cooperative, no acute distress - EENT Eyes: anicteric sclerae, EOMI, PERRLA, dentition normal, normal appearance ENT: hard of hearing, NA/AT, normal oropharynx - Neck Neck: no lymphadenopathy, normal ROM, no other, no rigidity, no stridor, no thyromegaly - Respiratory Respiratory: bilateral: CTA, negative: diminished, dullness, rales, rhonchi - Cardiovascular Rhythm: regular Heart sounds: normal: S1, S2 Abnormal Heart Sounds: no systolic murmur, no diastolic murmur, no rub, no S3 Gallop, no S4 Gallop, no click, no other - Gastrointestinal General gastrointestinal: normal bowel sounds, soft - Integumentary Integumentary: normal, normal turgor - Neurologic Neurologic: CNII-XII intact, focal deficits (None) - Musculoskeletal Musculoskeletal: gait normal, strength equal bilaterally Results CBC & Chem 7: 09/06/16 03:55 09/06/16 03:55 Labs: Abnormal Lab Results - Last 24 Hours (Table) 09/06/16 09/06/16 09/06/16 Range/Units 03:55 03:55 03:55 RBC 4.10 L (4.30-5.90) m/uL Hgb 12.4 L (13.0-17.5) gm/dL Hct 36.8 L (39.0-53.0) % Sodium 134 L (137-145) mmol/L Glucose 170 H (74-99) mg/dL Troponin I 1.360 H* (0.000-0.034) ng/mL Laboratory Results WBC 7.9 k/uL (3.8-10.6) 09/06/16 03:55 RBC 4.10 m/uL (4.30-5.90) L 09/06/16 03:55 Hgb 12.4 gm/dL (13.0-17.5) L 09/06/16 03:55 Hct 36.8 % (39.0-53.0) L 09/06/16 03:55 MCV 89.7 fL (80.0-100.0) 09/06/16 03:55 MCH 30.1 pg (25.0-35.0) 09/06/16 03:55 MCHC 33.6 g/dL (31.0-37.0) 09/06/16 03:55 RDW 13.0 % (11.5-15.5) 09/06/16 03:55 Plt Count 200 k/uL (150-450) 09/06/16 03:55 Neutrophils % 82 % 09/06/16 03:55 Neutrophils % (Manual) 47.0 % 09/05/16 21:17 Lymphocytes % 13 % 09/06/16 03:55 Lymphocytes % (Manual) 44.0 % 09/05/16 21:17 Monocytes % 3 % 09/06/16 03:55 Monocytes % (Manual) 9.0 % 09/05/16 21:17 Eosinophils % 0 % 09/06/16 03:55 Basophils % 0 % 09/06/16 03:55 Neutrophils # 6.4 k/uL (1.3-7.7) 09/06/16 03:55 Neutrophils # (Manual) 2.9 k/uL (1.3-7.7) 09/05/16 21:17 Lymphocytes # 1.1 k/uL (1.0-4.8) 09/06/16 03:55 Lymphocytes # (Manual) 2.7 k/uL (1.0-4.8) 09/05/16 21:17 Monocytes # 0.2 k/uL (0-1.0) 09/06/16 03:55 Monocytes # (Manual) 0.6 k/uL (0-1.0) 09/05/16 21:17 Eosinophils # 0.0 k/uL (0-0.7) 09/06/16 03:55 Basophils # 0.0 k/uL (0-0.2) 09/06/16 03:55 Nucleated RBCs 0 /100 WBC (0-0) 09/05/16 21:17 Manual Slide Review Performed 09/05/16 21:17 Polychromasia Present 09/05/16 21:17 PT 10.7 sec (9.0-12.0) 09/05/16 21:17 INR 1.1 (<1.1) 09/05/16 21:17 APTT 22.8 sec (22.0-30.0) 09/06/16 03:55 Sodium 134 mmol/L (137-145) L 09/06/16 03:55 Potassium 4.2 mmol/L (3.5-5.1) 09/06/16 03:55 Chloride 101 mmol/L (98-107) 09/06/16 03:55 Carbon Dioxide 22 mmol/L (22-30) 09/06/16 03:55 Anion Gap 11 mmol/L 09/06/16 03:55 BUN 16 mg/dL (9-20) 09/06/16 03:55 Creatinine 0.80 mg/dL (0.66-1.25) 09/06/16 03:55 Est GFR (MDRD) Af Amer >60 (>60 ml/min/1.73 sqM) 09/06/16 03:55 Est GFR (MDRD) Non-Af >60 (>60 ml/min/1.73 sqM) 09/06/16 03:55 Glucose 170 mg/dL (74-99) H 09/06/16 03:55 Calcium 8.9 mg/dL (8.4-10.2) 09/06/16 03:55 Total Bilirubin 1.3 mg/dL (0.2-1.3) 09/05/16 21:17 AST 18 U/L (17-59) 09/05/16 21:17 ALT 43 U/L (21-72) 09/05/16 21:17 Alkaline Phosphatase 65 U/L (38-126) 09/05/16 21:17 Total Creatine Kinase 124 U/L (55-170) 09/05/16 21:17 CK-MB (CK-2) 1.2 ng/mL (0.0-2.4) 09/05/16 21:17 CK-MB (CK-2) Rel Index 1.0 09/05/16 21:17 Troponin I 7.110 ng/mL (0.000-0.034) H* 09/06/16 09:03 Total Protein 7.3 g/dL (6.3-8.2) 09/05/16 21:17 Albumin 4.4 g/dL (3.5-5.0) 09/05/16 21:17 Thrombosis Risk Factor Assmnt - DVT/VTE Prophylaxis DVT/VTE Prophylaxis: Pharmacologic Prophylaxis ordered - Choose All That Apply Each Factor Represents 1 point: Acute NE, Age 41-60 years Other Risk Factors: No Other congenital or acquired thrombophilia - If yes, enter type in comment: No Thrombosis Risk Factor Assessment Total Risk Factor Score: 2 Thrombosis Risk Factor Assessment Level: Low Risk Assessment and Plan Plan: 1. STEMI involving inferior lead, requiring stent placement on mid RCA, and subsequent restenosis of the same segment secondary to thrombosis and repeat angiography required thrombus extraction and placement of another stent proximal to the previously stented vessel, performed Dr. Adams 09/05/2016, patient's requiring dual antiplatelets,, statin, RENA inhibitor, beta blockers are in place him a patient would be monitored in ICU and be evaluated for secondary arrhythmias. Aggrastat infusion is provided at 0.15 mcg/kg/m as recommended by cardiology. He is also on Effient 10 mg daily aspirin 81 mg daily Lipitor 80 mg daily nitro when necessary sublingual metoprolol 25 mg twice a day and lisinopril 5 mg daily. Patient would require O2 when necessary, and Colace 100 mg daily 2. Hyperlipidemia maintenance Lipitor increased to 80 mg daily 3. Hypertensive heart and vascular disease currently on lisinopril 5 mg daily and metoprolol 25 mg twice a day 4. Mild LV dysfunction related to acute NE, ejection fraction currently is 45- 50%, medications as mentioned above 5. GI prophylaxis DVT prophylaxis Lovenox 40 mg daily to be started , Pepcid Time with Patient: Greater than 30
[2016-09-06 14:50] LABS: Glucose,Whole Blood 158 mg/dL (75-99)
[2016-09-06] MEDS: DOCUSATE 100 MG CAP PO SCH (17:00)
[2016-09-06] MEDS ORDERED: NON-FORMULARY DRUG (Simvastatin [Zocor] 40 MG) PO SCH ×2 (21:00)
[2016-09-06] MEDS ORDERED: LISINOPRIL 10 MG TAB PO SCH ×2 (21:00)
[2016-09-06] MEDS ORDERED: FAMOTIDINE 20 MG TAB PO SCH (21:00)
[2016-09-06] MEDS: ACETAMINOPHEN TAB 325 MG TAB PO PRN (23:22)
[2016-09-07] MEDS: METOPROLOL TARTRATE 25 MG TAB PO SCH ×3 (03:53→21:08)
[2016-09-07 04:45] LABS: Basophils % (A) 0 %; CH 29.9; CHCM 33.8; Eosinophils # (A) 0.1 k/uL (0-0.7); Eosinophils % (A) 1 %; HCT 39.6 % (39.0-53.0); HDW 2.36; HGB 13.2 gm/dL (13.0-17.5); Luc % (Auto) 3; Lymphocytes # (A) 1.5 k/uL (1.0-4.8); Lymphocytes % (A) 24 %; MCH 29.6 pg (25.0-35.0); MCHC 33.3 g/dL (31.0-37.0); MCV 88.8 fL (80.0-100.0); Monocytes # (A) 0.4 k/uL (0-1.0); Monocytes % (A) 7 %; Neutrophils # (A) 4.1 k/uL (1.3-7.7); Neutrophils % (A) 65 %; RBC 4.46 m/uL (4.30-5.90); RDW 13.1 % (11.5-15.5); WBC 6.3 k/uL (3.8-10.6); WBC (Perox) 6.34
[2016-09-07 05:10] LABS: Anion Gap 9 mmol/L; Blood Urea Nitrogen 15 mg/dL (9-20); Calcium 9.3 mg/dL (8.4-10.2); Carbon Dioxide 25 mmol/L (22-30); Chloride 107 mmol/L (98-107); Glucose 121 mg/dL (74-99); Non-African American GFR(MDRD) >60 (>60 ml/min/1.73 sqM); Potassium 4.3 mmol/L (3.5-5.1); Sodium 141 mmol/L (137-145)
[2016-09-07] MEDS: ASPIRIN 81 MG CHEW PO SCH (08:15)
[2016-09-07] MEDS: PANTOPRAZOLE 40 MG TABLET PO SCH (08:15)
[2016-09-07] MEDS: DOCUSATE 100 MG CAP PO SCH (08:15)
[2016-09-07] MEDS: ATORVASTATIN 80 MG TAB PO SCH (08:15)
[2016-09-07] MEDS: PRASUGREL 10 MG TAB PO SCH (08:15)
[2016-09-07] MEDS: LISINOPRIL 5 MG TAB PO SCH (08:15)
[2016-09-07] MEDS ORDERED: ENOXAPARIN 40 MG/0.4 ML SYRINGE SQ SCH (09:00)
--- NOTE | 2016-09-07 11:24 | P.PN ---
Subjective Principal diagnosis: Acute ST elevation myocardial infarction this is a 55-year-old white male, presented to the ER with acute one hour history of stabbing chest pain at the base of his neck. Associated with diaphoresis, left arm numbness, and upon presentation patient was found to have ST elevation myocardial infarction in late to 3 aVF and some T-wave inversion in lead 12 and [address] depression in V4. Patient underwent cardiac catheterization upon presentation, and he underwent stenting of 2 blood vessels according to the patient, I am certain must have been the RCA for sure. No records in the chart at this point of the detailed cardiac cath procedure. 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 Upon my evaluation this morning, patient seems to be doing well, he is pain free, denies any nausea no vomiting no diaphoresis no headaches no blurred vision no dizziness no nausea no vomiting no abdominal pain. Patient is hemodynamically stable, sitting in bed, chest x-ray showed no evidence of any pulmonary edema or infiltrate. Patient had remote smoking history, quit many years ago, no family history of premature coronary artery disease, he does not drink any alcohol, is not diabetic, he is known to have history of hypertension and hypercholesterolemia. Patient is normally on this in September and simvastatin. And his primary care physician is Dr. cunningham Reevaluated today on 09/07/2016, patient seems to be doing well, patient had restenting of the RCA because he developed thrombosis of the initial stent. And he developed chest pain requiring restenting. Presently the patient is asymptomatic, remains in the ICU, no cough no wheezing no shortness of breath and no chest pain. Echocardiogram from yesterday showed mildly impaired left ventricle with ejection fraction of 45%. And there was evidence of basal inferolateral hypokinesis. Objective - Vital Signs Vital signs: Vital Signs Temp 99.7 F H 09/07/16 08:08 Pulse 50 L 09/07/16 11:00 Resp 12 09/07/16 11:00 BP 121/72 09/07/16 11:00 Pulse Ox 98 09/07/16 11:00 Intake & Output 09/06/16 09/07/16 09/07/16 18:59 06:59 18:59 Intake Total 1898.8 200 Output Total 0 0 Balance 1898.8 200 0 Weight 97.2 kg Intake: Intake, IV Titration 1648.8 Amount Sodium Chloride 0.9% 1, 700 000 ml @ 100 mls/hr IV . Q10H [facility] Rx#:[id number] Sodium Chloride 0.9% 1, 800 000 ml @ 100 mls/hr IV . Q10H [facility] Rx#:[id number] Tirofiban 12.5MG-250Ml Ns 148.8 250 ml @ 0.15 MCG/KG/MIN 18.37 mls/hr IV .[id number] [facility] Rx#:[id number] Oral 250 200 Output: Urine 0 0 Other: Voiding Method Toilet # Voids 1 1 - Exam Physical Exam: Revealed a 55-year-old in no distress HEENT:[Neck is supple.] [No neck masses.] [No thyromegaly.] [No JVD.] Chest: [Clear throughout, no crackles, no rhonchi, no wheezes.] Cardiac Exam: [Normal S1 and S2, no S3 gallop, 2/6 systolic murmur throughout the precordium Abdomen: [Soft, nontender, no megaly, no rebound, no guarding, normal bowel sounds.] Extremities: [No clubbing, no edema, no cyanosis.] Neurological Exam: [No focal neurologic deficit.] - Labs CBC & Chem 7: 09/07/16 04:17 09/07/16 04:17 Labs: Abnormal Lab Results - Last 24 Hours (Table) 09/06/16 09/07/16 Range/Units 00:48 04:17 Glucose 121 H (74-99) mg/dL POC Glucose (mg/dL) 158 H (75-99) mg/dL Assessment and Plan Plan: impression: [address] elevation myocardial infarction, status post stenting and restenting done by cardiology . 2 history of hypertension, patient is maintained normally on this in September. 3 history of hypercholesterolemia, maintained on simvastatin. 4 remote smoking history, no symptoms to suggest underlying COPD. Patient quit smoking in 2008. Recommendation: Continue present treatment plan, possibly transfer to a monitored bed on [facility] today, we'll see the patient on when necessary basis. Time with Patient: Less than 30
--- NOTE | 2016-09-07 11:42 | P.PN ---
Subjective Principal diagnosis: ST elevation DC. This is a pleasant 54-year-old gentleman patient of Dr. Sierra, he has underlying history of hyperlipidemia hypertension,osteoarthritis admitted from the emergency room with acute complaints of chest discomfort with regurgitation to the neck and the left arm, this started at 7 PM patient was getting off work however he had completed lifting boxes approximately between 40-100 pounds which is his routine, chest pressure was persistent until he was evaluated in emergency room and was found to have STEMI involving the inferior leads. This is his first episode all of [place] patient did not have any previous history of CHF diabetes mellitus CAD no previous arrhythmias, and a previous smoker, he quit 11 years ago. 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 2 hours later patient complained off chest discomfort again and was found to have another with elevation of his ST segment, a repeat angiography with removal off thrombotic material and another X he had stent was deployed proximal to the first one. Subsequent he had successful stenting with reduction of coronary artery stenosis from 100% to 0, patient is placed on aspirin and Effient beta michelle RENA inhibitor and statin, he is maintain on Aggrastat for a total of 18 hours from the procedure . Patient remains in ICU currently stable without any chest discomfort, vital signs stable,. He underwent an echocardiogram which showed mildly impaired LV function with ejection fraction of 45-50% sinus rhythm there is basal inferolateral hypokinesis trace MR and trace TR normal aortic valve 09/07/2016. Patient sitting up in a chair in no apparent distress, he denies any chest pain, she will Knapp, he has no abdominal pain, nausea, vomiting, diarrhea, he is ready to be transferred outside to the intensive care unit to the [facility]. Objective - Vital Signs Vital signs: Vital Signs Temp 99.2 F 09/07/16 04:00 Pulse 56 L 09/07/16 05:00 Resp 18 09/07/16 05:00 BP 106/66 09/07/16 05:00 Pulse Ox 98 09/07/16 05:00 Intake & Output 09/06/16 09/07/16 09/07/16 18:59 06:59 18:59 Intake Total 1898.8 200 Output Total 0 Balance 1898.8 200 Weight 97.2 kg Intake: Intake, IV Titration 1648.8 Amount Sodium Chloride 0.9% 1, 700 000 ml @ 100 mls/hr IV . Q10H ROXIE Rx#:[id number] Sodium Chloride 0.9% 1, 800 000 ml @ 100 mls/hr IV . Q10H ROXIE Rx#:[id number] Tirofiban 12.5MG-250Ml Ns 148.8 250 ml @ 0.15 MCG/KG/MIN 18.37 mls/hr IV .[id number] ROXIE Rx#:[id number] Oral 250 200 Output: Urine 0 Other: # Voids 1 1 - Exam - Constitutional General appearance: average body habitus, cooperative, no acute distress - EENT Eyes: anicteric sclerae, EOMI, PERRLA, dentition normal, normal appearance ENT: hard of hearing, NA/AT, normal oropharynx - Neck Neck: no lymphadenopathy, normal ROM, no other, no rigidity, no stridor, no thyromegaly - Respiratory Respiratory: bilateral: CTA, negative: diminished, dullness, rales, rhonchi - Cardiovascular Rhythm: regular Heart sounds: normal: S1, S2 Abnormal Heart Sounds: no systolic murmur, no diastolic murmur, no rub, no S3 Gallop, no S4 Gallop, no click, no other - Gastrointestinal General gastrointestinal: normal bowel sounds, soft - Integumentary Integumentary: normal, normal turgor - Neurologic Neurologic: CNII-XII intact, focal deficits (None) - Musculoskeletal Musculoskeletal: gait normal, strength equal bilaterally - Labs CBC & Chem 7: 09/07/16 04:17 09/07/16 04:17 Labs: Abnormal Lab Results - Last 24 Hours (Table) 09/06/16 09/06/16 09/07/16 Range/Units 00:48 09:03 04:17 Glucose 121 H (74-99) mg/dL POC Glucose (mg/dL) 158 H (75-99) mg/dL Troponin I 7.110 H* (0.000-0.034) ng/mL Assessment and Plan Plan: Assessment and plan: 1. STEMI involving inferior wall, requiring stent placement on mid RCA, and subsequent restenosis of the same segment secondary to thrombosis and repeat angiography required thrombus extraction and placement of another stent proximal to the previously stented vessel, performed Dr. Adams 09/05/2016, patient's requiring dual antiplatelets,, statin, RENA inhibitor, beta blockers are in place him a patient would be monitored in ICU and be evaluated for secondary arrhythmias. Aggrastat infusion is provided at 0.15 mcg/kg/m as recommended by cardiology. He is also on Effient 10 mg daily aspirin 81 mg daily Lipitor 80 mg daily nitro when necessary sublingual metoprolol 25 mg twice a day and lisinopril 5 mg daily. Patient would require O2 when necessary, and Colace 100 mg daily 2. Hyperlipidemia maintenance Lipitor increased to 80 mg daily 3. Hypertensive heart and vascular disease currently on lisinopril 5 mg daily and metoprolol 25 mg twice a day 4. Mild LV dysfunction related to acute DC, ejection fraction currently is 45- 50%, medications as mentioned above 5. GI prophylaxis. Continue patient on Pepcid. 6. DVT prophylaxis. Continue current management. 7. Prognosis is guarded.
--- NOTE | 2016-09-07 15:20 | PN ---
This patient came with inferior wall myocardial infarction. Patient had acute stent thrombosis and had a repeat stenting done. Patient is doing fairly well. Denies any chest pain, shortness of breath. Right groin is normal. Heart rate is 60 per minute. The blood pressure is 110/70 millimeters of Hg. First and second heart sounds are normal. Lungs are clinically clear to auscultation and percussion. Patient will be ambulated. We will continue the current medications.
[2016-09-07] MEDS: ACETAMINOPHEN TAB 325 MG TAB PO PRN (18:53)
[2016-09-08] MEDS: PRASUGREL 10 MG TAB PO SCH (08:31)
[2016-09-08] MEDS: ASPIRIN 81 MG CHEW PO SCH (08:32)
[2016-09-08] MEDS: ATORVASTATIN 80 MG TAB PO SCH (08:32)
[2016-09-08] MEDS: DOCUSATE 100 MG CAP PO SCH (08:32)
[2016-09-08] MEDS: PANTOPRAZOLE 40 MG TABLET PO SCH (08:34)
[2016-09-08] MEDS: LISINOPRIL 5 MG TAB PO SCH (08:34)
[2016-09-08] MEDS: METOPROLOL TARTRATE 25 MG TAB PO SCH ×2 (09:25→20:18)
--- NOTE | 2016-09-08 14:14 | P.PN ---
Subjective Principal diagnosis: ST elevation [place]. This is a pleasant 54-year-old gentleman patient of Dr. Sierra, he has underlying history of hyperlipidemia hypertension,osteoarthritis admitted from the emergency room with acute complaints of chest discomfort with regurgitation to the neck and the left arm, this started at 7 PM patient was getting off work however he had completed lifting boxes approximately between 40-100 pounds which is his routine, chest pressure was persistent until he was evaluated in emergency room and was found to have STEMI involving the inferior leads. This is his first episode all of [place] patient did not have any previous history of CHF diabetes mellitus CAD no previous arrhythmias, and a previous smoker, he quit 11 years ago. 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 2 hours later patient complained off chest discomfort again and was found to have another with elevation of his ST segment, a repeat angiography with removal off thrombotic material and another X he had stent was deployed proximal to the first one. Subsequent he had successful stenting with reduction of coronary artery stenosis from 100% to 0, patient is placed on aspirin and Effient beta michelle RENA inhibitor and statin, he is maintain on Aggrastat for a total of 18 hours from the procedure . Patient remains in ICU currently stable without any chest discomfort, vital signs stable,. He underwent an echocardiogram which showed mildly impaired LV function with ejection fraction of 45-50% sinus rhythm there is basal inferolateral hypokinesis trace MR and trace TR normal aortic valve 09/07/2016. Patient sitting up in a chair in no apparent distress, he denies any chest pain, she will Knapp, he has no abdominal pain, nausea, vomiting, diarrhea, he is ready to be transferred outside to the intensive care unit to the [facility] care. Objective - Vital Signs Vital signs: Vital Signs Temp 98.6 F 09/08/16 08:00 Pulse 59 L 09/08/16 08:00 Resp 14 09/08/16 08:00 BP 132/75 09/08/16 08:00 Pulse Ox 98 09/08/16 08:00 Intake & Output 09/07/16 09/08/16 09/08/16 18:59 06:59 18:59 Intake Total 300 500 Output Total 0 400 Balance 0 300 100 Weight 96.4 kg Intake: Oral 300 500 Output: Urine 0 400 Other: Voiding Method Toilet Toilet Toilet Urinal # Voids 1 1 - Exam - Constitutional General appearance: average body habitus, cooperative, no acute distress - EENT Eyes: anicteric sclerae, EOMI, PERRLA, dentition normal, normal appearance ENT: hard of hearing, NA/AT, normal oropharynx - Neck Neck: no lymphadenopathy, normal ROM, no other, no rigidity, no stridor, no thyromegaly - Respiratory Respiratory: bilateral: CTA, negative: diminished, dullness, rales, rhonchi - Cardiovascular Rhythm: regular Heart sounds: normal: S1, S2 Abnormal Heart Sounds: no systolic murmur, no diastolic murmur, no rub, no S3 Gallop, no S4 Gallop, no click, no other - Gastrointestinal General gastrointestinal: normal bowel sounds, soft - Integumentary Integumentary: normal, normal turgor - Neurologic Neurologic: CNII-XII intact, focal deficits (None) - Musculoskeletal Musculoskeletal: gait normal, strength equal bilaterally - Labs CBC & Chem 7: 09/07/16 04:17 09/07/16 04:17 Assessment and Plan Plan: Assessment and plan: 1. STEMI involving inferior wall, requiring stent placement on mid RCA, and subsequent restenosis of the same segment secondary to thrombosis and repeat angiography required thrombus extraction and placement of another stent proximal to the previously stented vessel, performed Dr. dAams 09/05/2016, patient's requiring dual antiplatelets,, statin, RENA inhibitor, beta blockers are in place him a patient would be monitored in ICU and be evaluated for secondary arrhythmias. Aggrastat infusion is provided at 0.15 mcg/kg/m as recommended by cardiology. He is also on Effient 10 mg daily aspirin 81 mg daily Lipitor 80 mg daily nitro when necessary sublingual metoprolol 25 mg twice a day and lisinopril 5 mg daily. Patient would require O2 when necessary, and Colace 100 mg daily 2. Hyperlipidemia maintenance Lipitor increased to 80 mg daily 3. Hypertensive heart and vascular disease currently on lisinopril 5 mg daily and metoprolol 25 mg twice a day 4. Mild LV dysfunction related to acute SC, ejection fraction currently is 45- 50%, medications as mentioned above 5. GI prophylaxis. Continue patient on Pepcid. 6. DVT prophylaxis. Continue current management. 7. Prognosis is guarded.
--- NOTE | 2016-09-08 14:41 | PN ---
This patient is status post inferior wall myocardial infarction. Patient has been doing fairly well. Denies any chest pain. Denies any shortness of breath. No arrhythmias are noted. Patient's vital signs remained stable. Blood pressure is 120/80 mmHg. HEART: S1 and S2 normal. Lungs are clinically clear to auscultation and percussion. Patient is advised to continue the current medications. Patient can be discharged home.
[2016-09-09 04:51] VITALS: TEMP 98.2
[2016-09-09] MEDS: LISINOPRIL 5 MG TAB PO SCH (08:35)
[2016-09-09] MEDS: METOPROLOL TARTRATE 25 MG TAB PO SCH (08:35)
[2016-09-09] MEDS: ASPIRIN 81 MG CHEW PO SCH (08:35)
[2016-09-09] MEDS: DOCUSATE 100 MG CAP PO SCH (08:35)
[2016-09-09] MEDS: ATORVASTATIN 80 MG TAB PO SCH (08:35)
[2016-09-09] MEDS: PANTOPRAZOLE 40 MG TABLET PO SCH (08:36)
[2016-09-09] MEDS: PRASUGREL 10 MG TAB PO SCH (08:36)
[2016-09-09 09:30] VITALS: BP 125/70; PULSE 56; RESP 16
--- NOTE | 2016-09-09 09:56 | P.PN ---
Subjective Principal diagnosis: Inferior STEMI This is a 55-year-old gentleman with history of hypertension, hyperlipidemia, who presented to the hospital with an acute inferior ST elevation myocardial infarction. He was taken to the cardiac catheterization lab by Dr. Adams where he underwent angioplasty with stent placement of the right coronary artery. While still in the [employer], patient started to complain of recurrent chest pain and it was again noted that the patient had re- elevation of his ST segment. He then underwent successful stenting of acute thrombosis of the mid right coronary artery. Echocardiogram with Doppler study was performed which revealed an ejection fraction of 45-50% with basal inferior lateral hypokinesia. Noted on the monitor to have a run of nonsustained ventricular tachycardia. Blood pressure this morning 125/70 with a heart rate in the 50s. CBC normal. Sodium 141, potassium 4.3, BUN 15, creatinine 1.0. The patient has been up ambulating without any difficulty, denies any chest pain or difficulty in breathing. Objective - Vital Signs Vital signs: Vital Signs Temp 98.2 F 09/09/16 04:04 Pulse 56 L 09/09/16 07:44 Resp 16 09/09/16 07:44 BP 125/70 09/09/16 07:44 Pulse Ox 97 09/09/16 07:44 Intake & Output 09/08/16 09/09/16 09/09/16 18:59 06:59 18:59 Intake Total 500 200 120 Output Total 400 Balance 100 200 120 Weight 97.2 kg Intake: Oral 500 200 120 Output: Urine 400 Other: Voiding Method Toilet Toilet Toilet Urinal Urinal Urinal # Voids 2 1 1 - Exam PHYSICAL EXAMINATION: HEENT: Head is atraumatic, normocephalic. Pupils equal, round. Neck is supple. There is no elevated jugular venous pressure. HEART EXAMINATION: Heart S1, S2 normal. No murmur or gallop heard. CHEST EXAMINATION: Lungs are clear to auscultation and precussion. No chest wall tenderness is noted on palpation or with deep breathing. ABDOMEN: Soft, nontender. Bowel sounds are heard. No organomegaly noted. EXTREMITIES: 2+ peripheral pulses with no evidence of peripheral edema and no calf tenderness noted. NEUROLOGIC patient is awake, alert and oriented -3. . - Labs CBC & Chem 7: 09/07/16 04:17 09/07/16 04:17 Assessment and Plan (1) ST elevation (STEMI) myocardial infarction involving right coronary artery Status: Acute (2) HTN (hypertension) Status: Acute (3) Hyperlipemia Status: Acute Plan: From cardiology's perspective, patient may be able to be discharged home today. We will make him a follow-up appointment to see Dr. Adams in the office post discharge. He will be discharged home on aspirin 81 mg daily, Lipitor 80 mg daily, lisinopril 5 mg daily, metoprolol tartrate 25 mg one tablet by mouth twice a day, Effient 10 mg daily and sublingual nitroglycerin as needed for chest pain. The patient has been provided prescriptions for his medications and has been educated regarding them. DNP note has been reviewed, I agree with a documented findings and plan of care. Patient was seen and examined.
--- NOTE | 2016-09-09 15:41 | P.DS ---
Providers Date of admission: 09/05/16 22:53 Expected date of discharge: 09/09/16 Attending physician: Marce Lawton Consults: 09/06/16 00:25 Consult Physician Routine Consulting Provider: Cardiology Sandra Consult Reason/Comments: Post Interventional patient Do you want consulting provider notified?: Already Contacted 09/06/16 09:49 Consult Physician Routine Consulting Provider: Ginny Hopper Reason/Comments: ICU management Do you want consulting provider notified?: Yes, Notify in am Primary care physician: Imtiaz Rigo [facility] Course: This is a pleasant 54-year-old gentleman patient of Dr. Sierra, he has underlying history of hyperlipidemia hypertension,osteoarthritis admitted from the emergency room with acute complaints of chest discomfort with regurgitation to the neck and the left arm, this started at 7 PM patient was getting off work however he had completed lifting boxes approximately between 40-100 pounds which is his routine, chest pressure was persistent until he was evaluated in emergency room and was found to have STEMI involving the inferior leads. This is his first episode all of [place] patient did not have any previous history of CHF diabetes mellitus CAD no previous arrhythmias, and a previous smoker, he quit 11 years ago. 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 2 hours later patient complained off chest discomfort again and was found to have another with elevation of his ST segment, a repeat angiography with removal off thrombotic material and another X he had stent was deployed proximal to the first one. Subsequent he had successful stenting with reduction of coronary artery stenosis from 100% to 0, patient is placed on aspirin and Effient beta michelle RENA inhibitor and statin, he is maintain on Aggrastat for a total of 18 hours from the procedure . Patient remains in ICU currently stable without any chest discomfort, vital signs stable,. He underwent an echocardiogram which showed mildly impaired LV function with ejection fraction of 45-50% sinus rhythm there is basal inferolateral hypokinesis trace MR and trace TR normal aortic valve 09/07/2016. Patient sitting up in a chair in no apparent distress, he denies any chest pain, she will Knapp, he has no abdominal pain, nausea, vomiting, diarrhea, he is ready to be transferred outside to the intensive care unit to the [facility]. 09/09: Patient has been cleared by cardiology for discharge home. They have sent through his new prescriptions. Patient denies any chest pain or shortness of breath. Patient does state that he is going to [place] on in a motor home and agrees that he will not be driving. Patient understands the need to go to the hospital immediately if any symptoms of chest pain shortness of breath or others develop. Patient will be discharged home today in stable condition. Discharge diagnoses: 1. STEMI involving inferior wall, requiring stent placement on mid RCA, and subsequent restenosis of the same segment secondary to thrombosis and repeat angiography required thrombus extraction and placement of another stent proximal to the previously stented vessel, performed Dr. Adams 09/05/2016 2. Hyperlipidemia 3. Hypertensive heart and vascular disease 4. Mild LV dysfunction related to acute [place], ejection fraction currently is 45- 50% Discharge plan: Home Impression and plan of care have been directed as dictated by the signing physician. Candace Aragon nurse practitioner acting as scribe for signing physician. Patient Condition at Discharge: Good Plan - Discharge Summary New Discharge Prescriptions: Aspirin 81 mg PO DAILY #30 chew Atorvastatin [Lipitor] 80 mg PO DAILY #30 tab Lisinopril [Zestril] 5 mg PO DAILY #30 tab Metoprolol Tartrate [Lopressor] 25 mg PO BID #60 tab Nitroglycerin Sl Tabs [Nitrostat] 0.4 mg SUBLINGUAL Q5M PRN #25 tab PRN Reason: Chest Pain Prasugrel [Effient] 10 mg PO DAILY #30 tab Discharge Medication List Aspirin 81 mg PO DAILY #30 chew 09/09/16 [Rx] Atorvastatin [Lipitor] 80 mg PO DAILY #30 tab 09/09/16 [Rx] Lisinopril [Zestril] 5 mg PO DAILY #30 tab 09/09/16 [Rx] Metoprolol Tartrate [Lopressor] 25 mg PO BID #60 tab 09/09/16 [Rx] Nitroglycerin Sl Tabs [Nitrostat] 0.4 mg SUBLINGUAL Q5M PRN #25 tab 09/09/16 [Rx ] Prasugrel [Effient] 10 mg PO DAILY #30 tab 09/09/16 [Rx] Follow up Appointment(s)/Referral(s): Lynne Adams MD [STAFF PHYSICIAN] - 09/12/16 8:45 am Imtiaz Sierra MD [Primary Care Provider] - 09/11/16 11:00 am Patient Instructions/Handouts: Myocardial Infarction (DC), Heart Catheterization (DC) Activity/Diet/Wound Care/Special Instructions: Can get Effient 1 month free [facility] at discharge. Monthly copay will be $50 per month. Follow a heart healthy diet. Activity as tolerated. Do not drive for two weeks. Discharge Disposition: HOME SELF-CARE
== END 2016-09-09 11:51 | disposition home or self-care (01) | DRG 247 ==
LOC: EC 20:59 → 6ICU 22:53
PROVIDERS: ADMIT Family Medicine; ATTEND Family Medicine
PROC: 4A023N7 Measurement of Cardiac Sampling and Pressure, Left Heart, Percutaneous Approach (ICD-10-PCS; 2016-09-05)
PROC: B211YZZ Fluoroscopy of Multiple Coronary Arteries using Other Contrast (ICD-10-PCS; 2016-09-05)
PROC: B215YZZ Fluoroscopy of Left Heart using Other Contrast (ICD-10-PCS; 2016-09-05)
PROC: 027034Z Dilation of Coronary Artery, One Artery with Drug-eluting Intraluminal Device, Percutaneous Approach (ICD-10-PCS; principal; 2016-09-05 21:46)
PROC: 027034Z Dilation of Coronary Artery, One Artery with Drug-eluting Intraluminal Device, Percutaneous Approach (ICD-10-PCS; 2016-09-06)
DX: I21.19 ST elevation (STEMI) myocardial infarction involving other coronary artery of inferior wall (principal); I47.2 Ventricular tachycardia; E78.5 Hyperlipidemia, unspecified; E78.00 Pure hypercholesterolemia, unspecified; I22.1 Subsequent ST elevation (STEMI) myocardial infarction of inferior wall; I25.119 Atherosclerotic heart disease of native coronary artery with unspecified angina pectoris; M19.90 Unspecified osteoarthritis, unspecified site; I11.9 Hypertensive heart disease without heart failure; Z79.899 Other long term (current) drug therapy; Z87.891 Personal history of nicotine dependence; Z82.49 Family history of ischemic heart disease and other diseases of the circulatory system
CPT/HCPCS: 36415; 71010; 80048; 80053; 82550; 82553; 84484; 85025; 85610; 85730; 93005; 93306; 93458; 93799; 96374; 96375; 96376; 99285

== ENCOUNTER → 2016-09-25 | Outpatient (CLI) | payer MEDICAID ==
--- NOTE | 2016-09-26 12:03 | EST ---
DATE OF SERVICE: 09/25/2016 AGE: 55Y SEX: M HT: 71" WT: 210 lbs. Protocol Ramsey: X Other: Stress Stage: 3 Dur. of Exercise: 8:30 *Heart Rate Blood Pressure *Rest: 58 Rest: 126/76 * *Max. Achieved: 155 Maximum BP: 165/65 85% PMHR: 142 100% PMHR: 167 *METS: 9.3 INDICATIONS: Post LA. MEDICATIONS: Aspirin, metoprolol, HRT, lisinopril, atorvastatin, Effient, Nitro. Patient was exercised for a total period of 8 minutes and 30 seconds. Peak heart rate of 155 was achieved. Maximum blood pressure of 165/65 mmHg was noted. Resting EKG shows normal sinus rhythm with normal ID interval and QRS duration and normal ST-T waves. No ST-segment depression suggestive of ischemia is noted. Occasional PVCs were noted. IMPRESSION: 1. This exercise test is not suggestive of ischemia. 2. Patient's exercise tolerance is normal. 3. Occasional premature ventricular contractions are noted.
== END | disposition home or self-care (01) ==
LOC: RADNMMAIN 10:22
PROVIDERS: ATTEND Internal Medicine Interventional Cardiology
DX: I25.2 Old myocardial infarction (principal)
CPT/HCPCS: 93017

== ENCOUNTER → 2016-12-25 | Outpatient (CLI) | payer MEDICAID ==
[2016-12-25 07:50] LABS: ALT 34 U/L (21-72); AST 16 U/L (17-59); Alkaline Phosphatase 64 U/L (38-126); Anion Gap 11 mmol/L; Blood Urea Nitrogen 20 mg/dL (9-20); Calcium 9.7 mg/dL (8.4-10.2); Carbon Dioxide 24 mmol/L (22-30); Chloride 106 mmol/L (98-107); Cholesterol 154 mg/dL (<200); Glucose 172 mg/dL (74-99); HDL Cholesterol 55 mg/dL (40-60); Non-African American GFR(MDRD) >60 (>60 ml/min/1.73 sqM); Potassium 4.3 mmol/L (3.5-5.1); Sodium 141 mmol/L (137-145); Total Bilirubin 1.4 mg/dL (0.2-1.3); Total Protein 7.2 g/dL (6.3-8.2); Triglycerides 80 mg/dL (<150)
== END | disposition home or self-care (01) ==
LOC: LABWHC1 06:42
PROVIDERS: ATTEND Internal Medicine Interventional Cardiology
DX: E78.2 Mixed hyperlipidemia (principal)
CPT/HCPCS: 36415; 80053; 80061

== ENCOUNTER → 2017-01-29 | Outpatient (CLI) | payer MEDICAID ==
[2017-01-29 11:17] LABS: Basophils % (A) 1 %; CH 30.3; CHCM 33.9; Eosinophils # (A) 0.1 k/uL (0-0.7); Eosinophils % (A) 2 %; HCT 45.4 % (39.0-53.0); HDW 2.39; HGB 15.7 gm/dL (13.0-17.5); Luc # (Auto) 0.18; Luc % (Auto) 4; Lymphocytes # (A) 1.3 k/uL (1.0-4.8); Lymphocytes % (A) 29 %; MCH 30.9 pg (25.0-35.0); MCHC 34.5 g/dL (31.0-37.0); MCV 89.6 fL (80.0-100.0); Monocytes # (A) 0.2 k/uL (0-1.0); Monocytes % (A) 5 %; Neutrophils # (A) 2.7 k/uL (1.3-7.7); Neutrophils % (A) 59 %; RBC 5.07 m/uL (4.30-5.90); RDW 13.1 % (11.5-15.5); WBC 4.6 k/uL (3.8-10.6); WBC (Perox) 4.61
[2017-01-29 11:45] LABS: ALT 49 U/L (21-72); AST 21 U/L (17-59); Alkaline Phosphatase 74 U/L (38-126); Anion Gap 13 mmol/L; Blood Urea Nitrogen 22 mg/dL (9-20); Calcium 9.8 mg/dL (8.4-10.2); Carbon Dioxide 21 mmol/L (22-30); Chloride 106 mmol/L (98-107); Cholesterol 173 mg/dL (<200); Glucose 144 mg/dL (74-99); HDL Cholesterol 53 mg/dL (40-60); Non-African American GFR(MDRD) >60 (>60 ml/min/1.73 sqM); Potassium 4.5 mmol/L (3.5-5.1); Sodium 140 mmol/L (137-145); Total Bilirubin 1.7 mg/dL (0.2-1.3); Total Protein 7.4 g/dL (6.3-8.2)
[2017-01-29 13:19] LABS: Hemoglobin A1C 7.8 % (4.2-6.1)
== END | disposition home or self-care (01) ==
LOC: LABWHC1 09:45
PROVIDERS: ATTEND Internal Medicine Geriatric Medicine
DX: E78.00 Pure hypercholesterolemia, unspecified (principal); R00.1 Bradycardia, unspecified; N40.0 Benign prostatic hyperplasia without lower urinary tract symptoms; R79.9 Abnormal finding of blood chemistry, unspecified
CPT/HCPCS: 84439; 80061; 80053; 83036; 84443; 85025; 36415; G0103

== ENCOUNTER → 2017-03-04 | Outpatient (CLI) | payer MEDICAID ==
--- NOTE | 2017-03-04 19:12 | CONS ---
CONSULTATION REASON FOR CONSULTATION: Sleep apnea. 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 This occurred back in August. There was a concern that the patient may have also sleep apnea. 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 The patient has a history of snoring, as noted by his , occasional witnessed apneas. No nighttime arousals, gasping for air or choking sensation. No grinding of the teeth. No nocturia. The patient has been waking up quite tired and fatigued. He goes to bed around 10 p.m., wakes at 5:30 a.m. in the morning. He averages around 6 to 7 hours of sleep per night. No significant weight loss or weight gain over the past years. No family history of obstructive sleep apnea. No sleepwalking or sleeptalking. No parasomnias noted. PAST MEDICAL HISTORY: 1. Coronary artery disease. 2. Hyperlipidemia. PAST SURGICAL HISTORY: 1. Cardiac catheterization and stenting. 2. Clavicle surgery. ALLERGIES: NOT KNOWN. OUTPATIENT MEDICATION: Outpatient medications include: 1. Aspirin. 2. Metoprolol. 3. Lisinopril. 4. Lipitor. 5. Plavix. 6. Nitroglycerin. SOCIAL HISTORY: He is an ex-smoker. No history of alcoholism. No history of IV drugs. FAMILY HISTORY: CVA in his father. Cholangiocarcinoma in his mother. 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 REVIEW OF SYSTEMS: Twelve-point review of system was done. CONSTITUTIONAL: Negative for weight loss or weight gain. No fever, chills or night sweats. HEENT: Snoring. No sinus allergies. CARDIOVASCULAR: Negative for angina, exertional dyspnea or palpitations. PULMONARY: Negative for cough, sputum production, ( ) or wheezing. GI: Negative for nausea, vomiting, abdominal pain or GI bleed. is negative for dysuria, frequency, urgency. MUSCULOSKELETAL: Negative for active arthritis or back pain. Skin is negative for ulcers, wounds, rashes or cellulitis. Neuro is negative for any strokes or seizures. Psych is negative for anxiety or depression. Rheumatologic is negative. Endocrinologic is negative. PHYSICAL EXAMINATION: HIS CURRENT VITAL SIGNS: BP is 120/69, pulse 48, respirations 16, temperature 98.2, saturation 93% on room air. Weight is 215. Height is 71 inches. Neck size is 19 inches. Toledo score is 7. BMI 29.9. GENERAL APPEARANCE: Obese, calm, comfortable. HEENT: Mallampati class 4. There is no goiter or neck masses. LUNGS: Clear to auscultation. HEART: Sounds are regular rate and rhythm. Normal S1, S2. No S3 or S4. No murmurs. ABDOMEN: Soft, nontender. No organomegaly. EXTREMITIES: No edema. No cyanosis or clubbing. NEURO: Alert and oriented x3. No focal neurological deficits. Skin is negative for rash, ulcers or wounds. MUSCULOSKELETAL: Negative for joint deformities or joint swelling. IMPRESSION: 1. Obstructive sleep apnea suspected clinically, currently under investigation. 2. Chronic fatigue with low degree of sleepiness; Toledo score of 7. 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 4. Coronary artery disease. 5. Recent myocardial infarction. 6. Hyperlipidemia. PLAN: 1. Encourage weight loss. 2. Proceed with a screening polysomnogram. MMODL / IJN: [id number] /
== END | disposition home or self-care (01) ==
LOC: SLEEP 15:59
PROVIDERS: ATTEND Internal Medicine Critical Care Medicine
DX: G47.30 Sleep apnea, unspecified (principal); I25.10 Atherosclerotic heart disease of native coronary artery without angina pectoris; I21.3 ST elevation (STEMI) myocardial infarction of unspecified site; R53.82 Chronic fatigue, unspecified; E78.5 Hyperlipidemia, unspecified; Z79.82 Long term (current) use of aspirin; Z79.899 Other long term (current) drug therapy; Z87.891 Personal history of nicotine dependence
CPT/HCPCS: 99211

== ENCOUNTER → 2017-08-05 | Outpatient (CLI) | payer MEDICAID ==
--- NOTE | 2017-08-05 16:06 | PN ---
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 The patient also had a significant number of nocturnal arousals, both on his screening polysomnogram and his CPAP titration study. At any rate, he was titrated to a CPAP pressure of 9 cm of water. Today he is coming in for a compliancy followup and recheck. He is very compliant and he is wearing his CPAP every night. His CPAP use for more than 4 hours is 29 out of 30. His average CPAP use is around 7.4 hours per night. His AHI while on treatment is down to 0.5 and the patient seems to be waking up a bit more refreshed during the day. He is having leaks around his mask. He is using a Mirage FX nose mask and he is interested in an alternative mask to avoid these leaks. Note that his leak factor as measured from his CPAP unit is only 11 L/minute. No snoring while on the treatment. The patient seems to be more rested. He is benefitting from the therapy. No other complaints otherwise for now. PHYSICAL EXAMINATION: BP 144/68, pulse 50, respiration 16. Temperature is 98.2, saturation 95% on room air. Weight is 216. GENERAL APPEARANCE: Calm, comfortable. Head is atraumatic, normocephalic. NECK: Supple. There is no JVD. No goiter or neck masses. LUNGS: Diminished breath sounds bilaterally; otherwise clear. HEART: Heart sounds are regular rate and rhythm. Normal S1, S2. No S3, S4. No murmurs. ABDOMEN: Soft, nontender. No organomegaly. EXTREMITIES: No edema. No cyanosis or clubbing. NEUROLOGIC: Alert and oriented x3. No focal neurological deficits. PSYCHIATRIC: Negative for anxiety or depression. Skin is negative for any wounds or ulceration. IMPRESSION: 1. Obstructive sleep apnea, mild to moderate in severity, with an AHI of 15. The patient is undergoing successful CPAP therapy with a pressure of 9 cm of water. 2. Nocturnal oxygen desaturations, recovered with CPAP therapy. 3. Frequent nocturnal arousals, not related to obstructive sleep apnea. 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 5. Coronary artery disease. 6. Hyperlipidemia. PLAN: 1. Continue treatment with the same level of CPAP pressure. 2. Switch this patient to an AirFit F20 full-face mask; a prescription will be sent to [facility]. 3. Encourage use of CPAP therapy along with implementing good sleep hygiene measures. 4. See me back in 6 months' time in followup. I am hoping that the patient will see progressive improvement in clinical response from CPAP treatment. 5. Encourage weight loss. 6. Will follow. COOPER / MYNOR: [id number] /
== END | disposition home or self-care (01) ==
LOC: SLEEP 14:11
PROVIDERS: ATTEND Internal Medicine Critical Care Medicine
DX: G47.33 Obstructive sleep apnea (adult) (pediatric) (principal); I25.10 Atherosclerotic heart disease of native coronary artery without angina pectoris; E78.5 Hyperlipidemia, unspecified; Z99.89 Dependence on other enabling machines and devices

== ENCOUNTER → 2017-12-26 | Outpatient (CLI) | payer MEDICAID ==
[2017-12-26 10:18] LABS: ALT 44 U/L (21-72); AST 21 U/L (17-59); Albumin 4.5 g/dL (3.5-5.0); Alkaline Phosphatase 60 U/L (38-126); Anion Gap 10 mmol/L; Blood Urea Nitrogen 18 mg/dL (9-20); Calcium 9.8 mg/dL (8.4-10.2); Carbon Dioxide 23 mmol/L (22-30); Chloride 108 mmol/L (98-107); Cholesterol 120 mg/dL (<200); Glucose 136 mg/dL (74-99); HDL Cholesterol 45 mg/dL (40-60); LDL Cholesterol,Calculated 61 mg/dL (0-99); Potassium 4.8 mmol/L (3.5-5.1); Sodium 141 mmol/L (137-145); Total Bilirubin 1.3 mg/dL (0.2-1.3); Total Protein 7.3 g/dL (6.3-8.2); Triglycerides 69 mg/dL (<150)
[2017-12-26 18:53] LABS: Hemoglobin A1C 6.9 % (4.0-6.0)
== END | disposition home or self-care (01) ==
LOC: LABWHC1 09:10
PROVIDERS: ATTEND Internal Medicine Interventional Cardiology
DX: E78.2 Mixed hyperlipidemia (principal)
CPT/HCPCS: 36415; 80053; 80061; 83036

== ENCOUNTER → 2018-01-27 | Outpatient (CLI) | payer MEDICAID ==
--- NOTE | 2018-01-27 18:07 | PN ---
PROGRESS NOTE Imtiaz is coming in for a compliance check. 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 AHI of 15.6 in regards to his obstructive sleep apnea currently on CPAP pressure of 9. Clinical response is noted by the patient and the patient feels better. However at times he is still feeling tired and is struggling to keep himself awake. 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 He admits that there is clinical improvement. However, he was expecting a better result. As such, I am suspecting that there is a component of residual hypersomnia despite being on CPAP therapy. On the compliance data, the patient has been averaging 7.4 hours of CPAP use per night. His CPAP use for more than 4 hours is 100%. His AHI while on treatment is down to 0.7. His leak factor is 24 L/minutes. He has no specific complaints otherwise for now, and his weight is stable. BP is 135/73, pulse 58, respirations 16, temperature 97.8, weight is 222. Saturation 95% on room air. General appearance: Calm comfortable. HEENT: Head atraumatic, normocephalic. Neck is supple. There is no JVD. No goiter or neck masses. LUNGS: Clear to auscultation. Heart sounds regular rate and rhythm. Normal S1, S2. No S3. No murmurs. Abdomen is soft, nontender. No organomegaly. EXTREMITIES: No edema. No cyanosis or clubbing. SKIN: Negative for any wounds or ulcerations. IMPRESSION: 1. Obstructive sleep apnea AHI of 15 currently on CPAP pressure of 9. 2. 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 Despite adequate compliancy. 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 5. Coronary artery disease. 6. Hyperlipidemia. PLAN: 1. Switch this patient to an auto CPAP minimum pressure of 4 and maximum pressure of 9. 2. Put the patient to humidity and climate control is automatic. 3. Consider addition of Provigil if he continues to have symptoms of hypersomnia. 4. Weight loss. 5. We will continue to follow. 6. See me back in 6 months' time. MMODL / IJN: [id number] /
== END | disposition home or self-care (01) ==
LOC: SLEEP 16:30
PROVIDERS: ATTEND Internal Medicine Critical Care Medicine
DX: G47.33 Obstructive sleep apnea (adult) (pediatric) (principal); E66.9 Obesity, unspecified; I25.10 Atherosclerotic heart disease of native coronary artery without angina pectoris; E78.5 Hyperlipidemia, unspecified; Z99.89 Dependence on other enabling machines and devices

== ENCOUNTER → 2018-03-02 | Outpatient (CLI) | payer MEDICAID ==
[2018-03-02 14:38] LABS: HCT 45.1 % (39.0-53.0); MCH 30.3 pg (25.0-35.0); MCHC 33.3 g/dL (31.0-37.0); MCV 91.1 fL (80.0-100.0); Mean Platelet Volume 7.4; Platelet Count 194 k/uL (150-450); RBC 4.95 m/uL (4.30-5.90); RDW 12.9 % (11.5-15.5); WBC 5.2 k/uL (3.8-10.6)
[2018-03-02 14:58] LABS: Anion Gap 11 mmol/L; Blood Urea Nitrogen 19 mg/dL (9-20); Carbon Dioxide 23 mmol/L (22-30); Chloride 109 mmol/L (98-107); Potassium 4.3 mmol/L (3.5-5.1); Sodium 143 mmol/L (137-145)
== END | disposition home or self-care (01) ==
LOC: LABPAT 14:07
PROVIDERS: ATTEND Internal Medicine Interventional Cardiology
DX: Z01.812 Encounter for preprocedural laboratory examination (principal); I25.10 Atherosclerotic heart disease of native coronary artery without angina pectoris; E78.2 Mixed hyperlipidemia
CPT/HCPCS: 36415; 80051; 82565; 84520; 85027

== ENCOUNTER 2018-03-17 06:28 | Day surgery (SDC) | payer MEDICAID ==
[2018-03-11 14:26] VITALS: BMI 30.1
[~2018-03-17 06:28] MED LIST changes: +ALPRAZolam 0.25 MG TAB PO PRN; +ALPRAZolam 0.5 MG TAB PO PRN; -MORPHINE SULFATE 4 MG/ML SYRINGE IV PRN; -NALOXONE 0.4 MG/ML 1 ML VIAL IV PRN; +NITROGLYCERIN SL TABS 0.4 MG TAB SUBLINGUAL PRN; +SODIUM CHLORIDE 0.9% 1,000 ML in EMPTY BAG 1 BAG IV ONE; -SODIUM CHLORIDE 0.9% 250 ML IV ONE
[2018-03-17] MEDS ORDERED: SODIUM CHLORIDE 0.9% 1,000 ML IV ONE (06:57)
[2018-03-17] MEDS ORDERED: ATORVASTATIN 80 MG TAB PO ONE (07:00)
[2018-03-17] MEDS ORDERED: ASPIRIN 325 MG TAB PO ONE (07:00)
[2018-03-17 07:05] VITALS: RESP 16; TEMP 98.4
[2018-03-17 07:12] LABS: Glucose,Whole Blood 141 mg/dL (75-99)
[2018-03-17] MEDS ORDERED: LIDOCAINE 1% INJ 10MG/ML (20 ML MDV) ONE (07:14)
[2018-03-17] MEDS ORDERED: VERAPAMIL 2.5 MG/ML 2 ML AMP ONE (07:14)
[2018-03-17] MEDS ORDERED: fentaNYL (PF) 50 MCG/ML 2 ML AMP ONE (07:14)
[2018-03-17] MEDS ORDERED: diphenhydrAMINE 50 MG/ML 1 ML VIAL ONE (07:14)
[2018-03-17] MEDS ORDERED: diphenhydrAMINE 50 MG/ML 1 ML VIAL IVP ONE (07:45)
[2018-03-17] MEDS ORDERED: fentaNYL (PF) 50 MCG/ML 2 ML AMP IVP ONE (07:45)
[2018-03-17] MEDS ORDERED: LIDOCAINE 1% INJ 10MG/ML (20 ML MDV) SQ ONE (07:51)
[2018-03-17] MEDS ORDERED: HEPARIN SODIUM 1,000 UN/ML (10ML VL) IV ONE (08:00)
[2018-03-17] MEDS ORDERED: IOPAMIDOL-370 125ML BTL INJ ONE (08:04)
[2018-03-17] MEDS ORDERED: SODIUM CHLORIDE 0.9% 1,000 ML IV SCH (08:15)
[2018-03-17] MEDS ORDERED: RX INFO: IV CONTRAST WAS GIVEN 1 EACH MISC MISCELLANE PRN (08:15)
[2018-03-17] MEDS ORDERED: NITROGLYCERIN SL TABS 0.4 MG TAB SUBLINGUAL PRN (08:16)
[2018-03-17] MEDS ORDERED: METOPROLOL TARTRATE 25 MG TAB PO SCH (09:00)
[2018-03-17] MEDS ORDERED: LISINOPRIL 5 MG TAB PO SCH (09:00)
[2018-03-17] MEDS ORDERED: ASPIRIN 81 MG PO SCH (09:00)
--- NOTE | 2018-03-17 09:19 | CC ---
CARDIAC CATHETERIZATION REPORT Mr. Buck is a 57-year-old male with a known history of heart disease who presented with inferior myocardial infarction in August of 2016, has a history of hypertension, hyperlipidemia, diabetes mellitus, recently underwent myocardial perfusion imaging that revealed evidence of inferolateral wall ischemia. In view of that, recommendation made regarding cardiac catheterization. The procedures, risks and complication were discussed with the patient who is in full understanding and agreement. PROCEDURE: Patient was brought to bolt labeler in a fasting semi-sedated state after receiving fentanyl and Benadryl and achieving moderate conscious sedated state. Using Xylocaine anesthesia in the Seldinger technique, a 6-Polish sheath was introduced in the right radial artery. Selective right and left angiography report was performed using 5- Polish 3.5 bend right and left Wendy catheter, multiple views of the left coronary artery including hemiaxial views were obtained. Following that 5-Polish tight pigtail catheter was introduced in the left ventricle and a 30 degree HOOKS view of the left ventricle was obtained. Following that, the catheter and sheaths were removed. Hemostasis was obtained with deployment of a TR band. There was no immediate complication. Patient is returned to his room in stable condition. Of note, the patient received 5000 units of intravenous heparin as well as intra-arterial verapamil. FINDINGS: LEFT MAIN: This is a short size vessel bifurcating into left circumflex, left anterior descending artery, left main coronary artery has no evidence of high-grade stenosis. LEFT ANTERIOR DESCENDING ARTERY: This is a large-sized vessel reaching toward the apex with a wraparound apex segment giving rise to a large diagonal branch. The left anterior descending artery has mild calcification in the proximal segment without any evidence of high-grade stenosis. LEFT CIRCUMFLEX: This is a nondominant vessel, giving rise to a large obtuse marginal branch. The left circumflex as well as branches have no evidence of obstructive coronary artery disease. RIGHT CAROTID ARTERY: This is a large dominant vessel, bifurcating into PDA and posterlateral septal branches. The mid segment of the right coronary artery at the stented area is patent. There is minimal intimal restenoses of 10% the rest of the vessel has no high-grade stenosis. LEFT VENTRICULOGRAM: Left ventriculogram was performed in 30 degree HOOKS view and revealed a normal pulse size and systolic function. Ejection fraction 55%. There was no significant mitral regurgitation. HEMODYNAMICS: There was no gradient across the aortic valve, the left ventricular end- diastolic pressure was 20 to 24 mmHg. CONCLUSION: 1. Mild intimal disease involving the left anterior descending artery with mild in- stent restenosis of the right coronary artery. 2. Normal left ventricular size and systolic function. RECOMMENDATION: In view of finding anatomy, I recommend continue medical therapy with aggressive risk modifications being initiated. Those findings and recommendation were discussed with the patient and his family who are in full understanding and agreement. Duration of procedure is 16 minutes. MMODL / IJN: [id number] /
[2018-03-17 13:13] VITALS: BP 113/54; PULSE 48
[2018-03-17] MEDS ORDERED: ATORVASTATIN 80 MG TAB PO SCH (21:00)
[2018-03-18] MEDS ORDERED: CLOPIDOGREL 75 MG TAB PO SCH (09:00)
== END 2018-03-17 13:13 | disposition home or self-care (01) ==
LOC: CATHCVL 06:28
PROVIDERS: ATTEND Internal Medicine Interventional Cardiology
DX: I25.10 Atherosclerotic heart disease of native coronary artery without angina pectoris (principal); I25.84 Coronary atherosclerosis due to calcified coronary lesion; I10 Essential (primary) hypertension; F17.210 Nicotine dependence, cigarettes, uncomplicated; E78.2 Mixed hyperlipidemia; E78.00 Pure hypercholesterolemia, unspecified; E11.9 Type 2 diabetes mellitus without complications; G47.33 Obstructive sleep apnea (adult) (pediatric); Z79.84 Long term (current) use of oral hypoglycemic drugs; Z79.02 Long term (current) use of antithrombotics/antiplatelets; Z79.82 Long term (current) use of aspirin; Z79.899 Other long term (current) drug therapy
CPT/HCPCS: 93458; C1894; C1769; J1200; J2001; J3010; J1644; Q9967

== ENCOUNTER → 2018-09-01 | Outpatient (CLI) | payer MEDICAID ==
--- NOTE | 2018-09-01 16:59 | PN ---
PROGRESS NOTE Imtiaz is a 57-year-old male patient coming in for a followup regarding his obstructive sleep apnea. 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 He has moderately severe obstructive sleep apnea with an AHI of 15.6. He is known to have also coronary artery disease and hyperlipidemia. He tells me that he has undergone a recent cardiac catheterization by Dr. Adams, and the catheterization showed no significant coronary artery disease. Overall he is doing well. No significant complaints. He is interested in changing his mask. He is currently using a Mirage FX; however, he has noted some leaks from his mouth and he is interested in a full-face mask. Based on the compliancy data, the patient has been utilizing his CPAP every night. His average CPAP use is around 7.7 hours per night. His P90 pressure is at 8.3. His leak factor is 22 L/minute. His AHI is down to 0.6. No recent weight gain or weight loss. He is waking up refreshed and alert during the day. No hypersomnia or sleepiness during the day. No episodes of falling asleep while driving. No other new complaints otherwise for now. REVIEW OF SYSTEMS: Fourteen-point review of systems was done. Positive findings were all mentioned above in the history of present illness. No recent weight gain or weight loss. No headache or altered mentation. No weakness. No falls. No tiredness or sleepiness. No history of any motor vehicle accident because of feeling drowsy or sleepy. No anxiety. No palpitations. No tremors. No cough. No sputum production. No shortness of breath. No chest pain. No heartburn. No history of frequency or urgency. No skin lesions. No other complaints otherwise for now. Most of the positive findings are all mentioned above in the history of present illness. OUTPATIENT MEDICATIONS: Include: 1. Aspirin 81 mg p.o. daily. 2. Metoprolol 25 mg b.i.d. 3. Lisinopril 5 mg p.o. daily. 4. Lipitor 40 mg p.o. daily. 5. Janumet 03/1000 one tablet a day. PHYSICAL EXAMINATION: BP is 151/77, pulse 57, respiratory rate 16, temperature 98.6. Saturation is 94% on room air. [place] Score is 17. BMI is 30.9. Weight is 222. GENERAL APPEARANCE: Calm, comfortable. Head is atraumatic, normocephalic. Neck is supple. No JVD. No goiter or neck masses. Mallampati class IV. LUNGS: Clear to auscultation. Heart sounds are regular rate and rhythm. Normal S1, S2. No S3, S4. No murmurs. Abdomen is soft, nontender. No organomegaly. EXTREMITIES: No edema. No cyanosis or clubbing. Neurologically awake and oriented x3. There is no focal neurological deficit. PSYCHIATRIC: Negative for anxiety or depression. IMPRESSION: 1. Obstructive sleep apnea, mild in severity; apnea/hypopnea index of 15. The patient undergoes successful CPAP therapy with an APAP, minimum of 4 and maximum of 9. 2. Oral leaks, as the patient is using a nose mask, Mirage FX, and the leak factor is 22 L/minute. 3. Hypersomnia, improved. 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 5. Obesity. 6. Coronary artery disease. 7. Hyperlipidemia. PLAN: 1. Continue same CPAP pressure setting. 2. Advance this patient to a DreamWear full-face mask, small size. The patient was fitted to the right size and the appropriate seal was provided. The patient will contact me back at a later stage to decide if this is the mask that he would like to pursue in the future. 3. Continue using CPAP therapy. 4. Encourage weight loss. 5. Implement good sleep hygiene measures. 6. Treatment is successful and the patient is compliant. He will see me back in a year's time. MMDWIGHTL / TESSN: [id number] /
== END | disposition home or self-care (01) ==
LOC: SLEEP 15:14
PROVIDERS: ATTEND Internal Medicine Critical Care Medicine
DX: G47.33 Obstructive sleep apnea (adult) (pediatric) (principal); I25.10 Atherosclerotic heart disease of native coronary artery without angina pectoris; E78.5 Hyperlipidemia, unspecified; E66.9 Obesity, unspecified; Z95.5 Presence of coronary angioplasty implant and graft; Z79.82 Long term (current) use of aspirin; Z79.899 Other long term (current) drug therapy; Z99.89 Dependence on other enabling machines and devices; Z68.30 Body mass index [BMI] 30.0-30.9, adult

== ENCOUNTER → 2018-09-30 | Outpatient (CLI) | payer MEDICAID ==
[2018-09-30 17:47] LABS: LDL Cholesterol,Calculated 84.2 mg/dL (0.0-131.0); VLDL Calculation 18.8 mg/dL (5.00-40.00)
== END | disposition home or self-care (01) ==
LOC: LABWHC1 10:30
PROVIDERS: ATTEND Internal Medicine Interventional Cardiology
DX: E78.2 Mixed hyperlipidemia (principal)
CPT/HCPCS: 36415; 80061; 84450; 84460

== ENCOUNTER → 2019-04-29 | Outpatient (CLI) | payer MEDICAID ==
[2019-04-29 16:56] LABS: Chol/HDL Ratio 3.48; LDL Cholesterol,Calculated 96.4 mg/dL (0.0-131.0); VLDL Calculation 12.6 mg/dL (5.00-40.00)
== END | disposition home or self-care (01) ==
LOC: LABWHC1 08:45
PROVIDERS: ATTEND Internal Medicine Interventional Cardiology
DX: E78.2 Mixed hyperlipidemia (principal)
CPT/HCPCS: 36415; 80061; 84450; 84460

== ENCOUNTER → 2019-07-21 | Outpatient (CLI) | payer MEDICAID ==
[2019-07-21 11:03] LABS: Basophils % (A) 1 %; Eosinophils # (A) 0.1 k/uL (0-0.7); Eosinophils % (A) 2 %; HCT 47.8 % (39.0-53.0); HGB 15.2 gm/dL (13.0-17.5); Lymphocytes # (A) 1.3 k/uL (1.0-4.8); Lymphocytes % (A) 26 %; MCH 29.1 pg (25.0-35.0); MCHC 31.8 g/dL (31.0-37.0); MCV 91.5 fL (80.0-100.0); Mean Platelet Volume 7.7; Monocytes # (A) 0.3 k/uL (0-1.0); Monocytes % (A) 6 %; Neutrophils # (A) 3.1 k/uL (1.3-7.7); Neutrophils % (A) 61 %; Platelet Count 224 k/uL (150-450); RBC 5.22 m/uL (4.30-5.90); WBC 5.1 k/uL (3.8-10.6)
[2019-07-21 16:44] LABS: African American GFR (CKD) 97.1 (60.0-200.0); Albumin 4.6 g/dL (3.80-4.90); Albumin/Globulin Ratio 2.3 (1.60-3.17); Calcium 9.3 mg/dL (8.7-10.3); Chol/HDL Ratio 2.63; LDL Cholesterol,Calculated 58.8 mg/dL (0.0-131.0); Non-African American GFR(CKD) 83.8 (60.0-200.0); Potassium 4.7 mmol/L (3.5-5.5); Total Bilirubin 1.1 mg/dL (0.3-1.2); Total Protein 6.6 g/dL (6.2-8.2); VLDL Calculation 11.2 mg/dL (5.00-40.00)
[2019-07-21 17:48] LABS: Hemoglobin A1C 6.1 % (4.0-6.0)
[2019-07-21 18:02] LABS: Urine Creatinine 99.1 mg/dL
== END | disposition home or self-care (01) ==
LOC: LABWHC1 09:30
PROVIDERS: ATTEND Internal Medicine Geriatric Medicine
DX: I10 Essential (primary) hypertension (principal); I25.119 Atherosclerotic heart disease of native coronary artery with unspecified angina pectoris; E11.8 Type 2 diabetes mellitus with unspecified complications; E78.2 Mixed hyperlipidemia; N40.0 Benign prostatic hyperplasia without lower urinary tract symptoms
CPT/HCPCS: 36415; 80053; 80061; 82043; 82570; 83036; 84153; 84443; 85025

== ENCOUNTER → 2019-12-22 | Outpatient (CLI) | payer MEDICAID ==
--- NOTE | 2019-12-22 13:13 | XR ---
EXAMINATION TYPE: XR cervical spine comp DATE OF EXAM: 12/22/2019 COMPARISON: None HISTORY: Cervicalgia TECHNIQUE: Five-view cervical spine FINDINGS: There is moderate foraminal narrowing on the right at C4-5 and C5-6. Milder narrowing is pr esent C3-4 on the right. Mild left foraminal narrowing may be present C3-4 C4-5. Vertebral body alignment is normal. Tip of the odontoid is obscured by occiput. Disc heights appear p reserved. Vertebral body heights are preserved. Prevertebral space and posterior spinal lamellar line are intact. Note is made of some vascular calcification in the expected region of the carotid bifurcations. IMPRESSION: 1. Upper cervical spine foraminal narrowing discussed above.
[2019-12-22 16:34] LABS: ALT 34 U/L (4-49); AST 30 U/L (17-59); African American GFR (CKD) >90 (>60 ml/min/1.73 sqM); Albumin 4.5 g/dL (3.5-5.0); Alkaline Phosphatase 66 U/L (38-126); Anion Gap 8 mmol/L; Blood Urea Nitrogen 17 mg/dL (9-20); Calcium 9.7 mg/dL (8.4-10.2); Carbon Dioxide 24 mmol/L (22-30); Chloride 107 mmol/L (98-107); Cholesterol 119 mg/dL (<200); Glucose 96 mg/dL (74-99); HDL Cholesterol 55 mg/dL (40-60); LDL Cholesterol,Calculated 51 mg/dL (0-99); Non-African American GFR(CKD) >90 (>60 ml/min/1.73 sqM); Potassium 4.6 mmol/L (3.5-5.1); Sodium 139 mmol/L (137-145); Total Bilirubin 1.7 mg/dL (0.2-1.3); Total Protein 7.3 g/dL (6.3-8.2); Triglycerides 66 mg/dL (<150)
== END | disposition home or self-care (01) ==
LOC: RADXRMAIN 09:23
PROVIDERS: ATTEND Internal Medicine Geriatric Medicine
DX: M48.02 Spinal stenosis, cervical region (principal); E78.2 Mixed hyperlipidemia
CPT/HCPCS: 72050; 80053; 80061

== ENCOUNTER → 2020-01-26 | Outpatient (CLI) | payer MEDICAID ==
--- NOTE | 2020-01-26 17:18 | MR ---
EXAMINATION TYPE: MR cervical spine wo/w con DATE OF EXAM: 01/26/2020 COMPARISON: None HISTORY: Neck pain, wrist pain and numbness x 1 year TECHNIQUE: Multiplanar, multisequence images of the cervical spine were acquired utilizing 10 mL intravenous Best avist gadolinium contrast. Multilevel facet arthropathy. C2-C3: Minimal central disc protrusion indents the ventral aspect of the thecal sac. No Canal stenosi s. Foramina are patent bilaterally. C3-C4: Mild posterior disc bulge. No Canal stenosis. Severe left and mild to moderate right neural fo ramina narrowing. C4-C5: Mild posterior disc bulge. No Canal stenosis. Severe left and moderate right neural foramina n arrowing. C5-C6: Mild posterior disc bulge. No Canal stenosis. Mild left neural foramina narrowing. C6-C7: Posterior disc bulge. No Canal stenosis. Foramina are patent bilaterally. C7-T1: No evidence for degenerative disc disease. No disc bulge/herniation or protrusion. No Canal stenosis. Foramina are patent bilaterally. Cervical segments are intact. There is normal alignment. Cervical spinal cord is of normal signal. Craniovertebral junction relationships are within normal limits. No abnormal postcontrast enhanceme nt is seen. IMPRESSION: Degenerative disc disease and facet arthropathy. No Canal stenosis. Varying degrees of neural foramin a narrowing as above, worse on the left.
== END | disposition home or self-care (01) ==
LOC: RADMRIMAIN 08:28
PROVIDERS: ATTEND Internal Medicine Geriatric Medicine
DX: M48.02 Spinal stenosis, cervical region (principal); M50.30 Other cervical disc degeneration, unspecified cervical region; M47.812 Spondylosis without myelopathy or radiculopathy, cervical region
CPT/HCPCS: 72156; A9585

== ENCOUNTER → 2020-05-08 | Outpatient (CLI) | payer MEDICAID ==
[2020-05-08 11:55] LABS: Basophils % (A) 1 %; Eosinophils # (A) 0.1 k/uL (0-0.7); Eosinophils % (A) 2 %; HCT 48.8 % (39.0-53.0); HGB 15.6 gm/dL (13.0-17.5); Lymphocytes # (A) 1.5 k/uL (1.0-4.8); Lymphocytes % (A) 25 %; MCV 93.6 fL (80.0-100.0); Mean Platelet Volume 7.2; Monocytes # (A) 0.3 k/uL (0-1.0); Monocytes % (A) 5 %; Neutrophils # (A) 3.8 k/uL (1.3-7.7); Neutrophils % (A) 64 %; Platelet Count 208 k/uL (150-450); RBC 5.21 m/uL (4.30-5.90); RDW 13.2 % (11.5-15.5)
[2020-05-08 18:35] LABS: African American GFR (CKD) 85.9 (60.0-200.0); Albumin 4.7 g/dL (3.80-4.90); Albumin/Globulin Ratio 1.96 (1.60-3.17); Anion Gap 7.5 mmol/L (4.00-12.00); BUN/Creat Ratio 19.09 Ratio (12.00-20.00); Calcium 9.7 mg/dL (8.7-10.3); Carbon Dioxide 25.5 mmol/L (21.6-31.8); Chol/HDL Ratio 2.67; Globulin 2.4 g/dL (1.6-3.3); Non-African American GFR(CKD) 74.1 (60.0-200.0); Potassium 4.5 mmol/L (3.5-5.5); Total Protein 7.1 g/dL (6.2-8.2)
[2020-05-08 20:10] LABS: Hemoglobin A1C 6.3 % (4.0-6.0)
== END | disposition home or self-care (01) ==
LOC: LABWHC1 09:26
PROVIDERS: ATTEND Internal Medicine Geriatric Medicine
DX: I25.119 Atherosclerotic heart disease of native coronary artery with unspecified angina pectoris (principal); E11.8 Type 2 diabetes mellitus with unspecified complications; E78.2 Mixed hyperlipidemia
CPT/HCPCS: 36415; 80053; 80061; 83036; 84443; 85025

== ENCOUNTER → 2021-01-03 | Outpatient (CLI) | payer MEDICAID ==
[2021-01-04 03:36] LABS: Chol/HDL Ratio 2.95
== END | disposition home or self-care (01) ==
LOC: LABWHC1 08:47
PROVIDERS: ATTEND Internal Medicine Interventional Cardiology
DX: E78.2 Mixed hyperlipidemia (principal)
CPT/HCPCS: 36415; 80061; 84450; 84460

== ENCOUNTER → 2021-07-11 | Outpatient (CLI) | payer MEDICAID ==
[2021-07-11 14:25] LABS: Basophils # (A) 0.02 X 10*3/uL (0.00-0.10); Basophils % (A) 0.4 %; Eosinophils % (A) 2.2 %; HCT 46.9 % (39.6-50.0); HGB 15.1 g/dL (13.0-17.0); Lymphocytes # (A) 1.41 X 10*3/uL (0.90-5.00); Lymphocytes % (A) 30.5 %; MCH 29.5 pg (27.0-32.0); MCHC 32.2 g/dL (32.0-37.0); MCV 91.8 fL (80.0-97.0); Mean Platelet Volume 10.1 fL (9.5-12.2); Monocytes # (A) 0.47 X 10*3/uL (0.20-1.00); Monocytes % (A) 10.2 %; Neutrophils # (A) 2.62 X 10*3/uL (1.80-7.70); Neutrophils % (A) 56.5 %; Platelet Count 197 X 10*3/uL (140-440); RBC 5.11 X 10*6/uL (4.40-5.60); RDW 12.9 % (11.5-14.5); WBC 4.63 X 10*3/uL (4.50-10.00)
[2021-07-11 19:25] LABS: ALT 40 U/L (10-49); AST 26 U/L (14-35); African American GFR (CKD) 81.7 (60.0-200.0); Albumin 4.6 g/dL (3.8-4.9); Albumin/Globulin Ratio 1.57 (1.60-3.17); Alkaline Phosphatase 59 U/L (41-126); BUN/Creat Ratio 17.63 Ratio (12.00-20.00); Blood Urea Nitrogen 20.1 mg/dL (9.0-27.0); Calcium 9.6 mg/dL (8.7-10.3); Carbon Dioxide 18.6 mmol/L (20.0-27.5); Chloride 107 mmol/L (96-109); Chol/HDL Ratio 2.68 Ratio; Globulin 2.9 g/dL (1.6-3.3); Glucose 147 mg/dL (70-110); LDL Cholesterol,Calculated 58.8 mg/dL (0.0-131.0); Non-African American GFR(CKD) 70.5 (60.0-200.0); Potassium 4.7 mmol/L (3.5-5.5); Sodium 139 mmol/L (135-145); Total Protein 7.5 g/dL (6.2-8.2); VLDL Calculation 15.78 mg/dL (5.00-40.00)
== END | disposition home or self-care (01) ==
LOC: LABWHC1 07:50
PROVIDERS: ATTEND Internal Medicine Interventional Cardiology
DX: I25.119 Atherosclerotic heart disease of native coronary artery with unspecified angina pectoris (principal); E78.2 Mixed hyperlipidemia; E11.8 Type 2 diabetes mellitus with unspecified complications; N40.0 Benign prostatic hyperplasia without lower urinary tract symptoms
CPT/HCPCS: 36415; 80053; 80061; 83036; 84153; 84439; 84443; 85025

== ENCOUNTER 2021-09-04 07:48 | Day surgery (SDC) | payer MEDICAID ==
[2021-08-30 13:46] VITALS: BMI 29.8
[~2021-09-04 07:48] MED LIST changes: -ALPRAZolam 0.25 MG TAB PO PRN; -ALPRAZolam 0.5 MG TAB PO PRN; +LACTATED RINGERS 1,000 ML IV SCH; +LIDOCAINE 1% (10MG/ML) FOR IV START INTRADERMA PRN; -NITROGLYCERIN SL TABS 0.4 MG TAB SUBLINGUAL PRN; -SODIUM CHLORIDE 0.9% 1,000 ML in EMPTY BAG 1 BAG IV ONE
[2021-09-04 08:06] VITALS: TEMP 98.6
[2021-09-04 08:15] LABS: Glucose,Whole Blood 147 mg/dL (75-99)
[2021-09-04] MEDS ORDERED: PROPOFOL 10 MG/ML 20 ML VIAL IV ONE (08:33)
--- NOTE | 2021-09-04 08:35 | P.GSHP ---
History of Present Illness H&P Date: 09/04/21 Chief Complaint: History of colon polyps, screening Patient here today for colonoscopy. Last colonoscopy 6 years ago. Patient had 2 adenomatous polyps at that time. No bowel complaints. No family history of colon cancer. Past Medical History Past Medical History: Coronary Artery Disease (CAD), Diabetes Mellitus, Hyperlipidemia, Hypertension, Sleep Apnea/CPAP/BIPAP Additional Past Medical History / Comment(s): "artery closed in heart-not sure if heart attack or not", Last Myocardial Infarction Date:: 08/2016 History of Any Multi-Drug Resistant Organisms: None Reported Past Surgical History: Heart Catheterization With Stent, Orthopedic Surgery Additional Past Surgical History / Comment(s): recontructive surgery LEFT CLAVICLE, one cardiac stent Past Anesthesia/Blood Transfusion Reactions: Motion Sickness Date of Last Stent Placement:: 08/2016 Smoking Status: Former smoker - Past Family History Father Family Medical History: Cancer Mother Family Medical History: Cancer Brother(s) Family Medical History: Cancer Sister(s) Family Medical History: No Reported History Daughter(s) Family Medical History: No Reported History Son(s) Family Medical History: No Reported History Medications and Allergies Home Medications Medication Instructions Recorded Confirmed Type Aspirin 81 mg PO DAILY #30 chew 09/09/16 09/04/21 Rx Nitroglycerin Sl Tabs [Nitrostat] 0.4 mg SUBLINGUAL Q5M PRN #25 tab 09/09/16 08/30/21 Rx lisinopriL [Zestril] 5 mg PO DAILY #30 tab 09/09/16 08/30/21 Rx Atorvastatin [Lipitor] 40 mg PO W/SUPPER 08/30/21 08/30/21 History Dulaglutide [Trulicity] 0.75 mg SQ HAMM 08/30/21 08/30/21 History Ezetimibe [Zetia] 10 mg PO W/SUPPER 08/30/21 08/30/21 History sitaGLIPtin PHOS/metFORMIN HCL 1 tab PO W/SUPPER 08/30/21 09/04/21 History [Janumet Xr 100-1,000 mg Tablet] Allergies Allergy/AdvReac Type Severity Reaction Status Date / Time No Known Allergies Allergy Verified 08/30/21 13:36 Surgical - Exam Vital Signs Temp Pulse Resp BP Pulse Ox 98.6 F 88 17 162/76 98 09/04/21 08:06 09/04/21 08:06 09/04/21 08:06 09/04/21 08:06 09/04/21 08:06 Physical exam: General: Well-developed, well-nourished HEENT: Normocephalic, sclerae nonicteric Abdomen: Nontender, nondistended Extremities: No edema Neuro: Alert and oriented Results - Labs Abnormal Lab Results - Last 24 Hours (Table) 09/04/21 Range/Units 08:13 POC Glucose (mg/dL) 147 H (75-99) mg/dL Assessment and Plan (1) Colon cancer screening Narrative/Plan: Will proceed with colonoscopy Current Visit: No Status: Acute Code(s): Z12.11 - ENCOUNTER FOR SCREENING FOR MALIGNANT NEOPLASM OF COLON SNOMED Code(s): 918886915
--- NOTE | 2021-09-04 08:50 | P.PCN ---
Date of Procedure: 09/04/21 Procedure(s) Performed: PREOPERATIVE DIAGNOSIS: screening, h/o polyps POSTOPERATIVE DIAGNOSIS: Normal exam PROCEDURE: Colonoscopy ANESTHESIA: MAC SURGEON: Ron Cagle M.D. SPECIMENS: ENDOSCOPIC PROCEDURE: The patient was placed on the endoscopy table in the left decubitus position. The Olympus colonoscope was inserted into the anus and passed under direct visualization to the base of the cecum. The appendiceal orifice was visualized. From that point the scope was slowly withdrawn inspecting all surfaces carefully. There were no neoplastic inflammatory or polypoid lesions throughout the cecum, ascending, transverse, descending, sigmoid and rectum. There was no diverticulosis noted. Digital rectal examination was normal. The patient was taken to the recovery room in stable condition per anesthesia guidelines. RECOMMENDATIONS: Resume diet. Follow-up colonoscopy 5 years.
[2021-09-04 08:54] VITALS: RESP 16
[2021-09-04 09:11] VITALS: BP 128/76; PULSE 77
== END 2021-09-04 09:30 | disposition home or self-care (01) ==
LOC: ORWHC2ENDO 07:48
PROVIDERS: ATTEND Surgery
DX: Z12.11 Encounter for screening for malignant neoplasm of colon (principal); Z86.010 Personal history of colon polyps; I25.10 Atherosclerotic heart disease of native coronary artery without angina pectoris; E11.9 Type 2 diabetes mellitus without complications; E78.5 Hyperlipidemia, unspecified; I10 Essential (primary) hypertension; G47.33 Obstructive sleep apnea (adult) (pediatric); I25.2 Old myocardial infarction; Z87.891 Personal history of nicotine dependence; Z80.9 Family history of malignant neoplasm, unspecified; Z79.82 Long term (current) use of aspirin; Z79.84 Long term (current) use of oral hypoglycemic drugs
CPT/HCPCS: 45378; J2704

== ENCOUNTER → 2021-10-31 | Outpatient (CLI) | payer MEDICAID ==
[2021-10-31 10:52] LABS: Basophils # (A) 0.03 X 10*3/uL (0.00-0.10); Basophils % (A) 0.7 %; Eosinophils # (A) 0.07 X 10*3/uL (0.04-0.35); Eosinophils % (A) 1.6 %; HGB 15.2 g/dL (13.0-17.0); Immature Grans, Automated 0.2 %; Lymphocytes # (A) 1.18 X 10*3/uL (0.90-5.00); Lymphocytes % (A) 26.6 %; MCH 30.1 pg (27.0-32.0); MCV 91.1 fL (80.0-97.0); Mean Platelet Volume 10.4 fL (9.5-12.2); Monocytes # (A) 0.48 X 10*3/uL (0.20-1.00); Monocytes % (A) 10.8 %; NRBC Per 100 WBC 0 /100 WBCS (0.0-0.0); Neutrophils # (A) 2.66 X 10*3/uL (1.80-7.70); Neutrophils % (A) 60.1 %; Platelet Count 192 X 10*3/uL (140-440); RBC 5.05 X 10*6/uL (4.40-5.60); RDW 13.1 % (11.5-14.5); WBC 4.43 X 10*3/uL (4.50-10.00)
[2021-10-31 12:45] LABS: ALT 25 U/L (10-49); AST 21 U/L (14-35); African American GFR (CKD) 85.3 (60.0-200.0); Albumin 4.6 g/dL (3.8-4.9); Albumin/Globulin Ratio 1.53 (1.60-3.17); Alkaline Phosphatase 62 U/L (41-126); BUN/Creat Ratio 14.73 Ratio (12.00-20.00); Blood Urea Nitrogen 16.2 mg/dL (9.0-27.0); Chloride 104 mmol/L (96-109); Chol/HDL Ratio 2.36 Ratio; Glucose 137 mg/dL (70-110); LDL Cholesterol,Calculated 49.2 mg/dL (0.0-131.0); Non-African American GFR(CKD) 73.6 (60.0-200.0); Potassium 4.6 mmol/L (3.5-5.5); Sodium 138 mmol/L (135-145); Total Protein 7.6 g/dL (6.2-8.2); VLDL Calculation 10.84 mg/dL (5.00-40.00)
== END | disposition home or self-care (01) ==
LOC: LABWHC1 07:10
PROVIDERS: ATTEND Nurse Practitioner Adult Health
DX: I10 Essential (primary) hypertension (principal); E11.8 Type 2 diabetes mellitus with unspecified complications; E78.2 Mixed hyperlipidemia; N40.0 Benign prostatic hyperplasia without lower urinary tract symptoms
CPT/HCPCS: 36415; 80053; 80061; 82043; 82570; 83036; 84153; 84443; 85025

== ENCOUNTER → 2022-01-16 | Outpatient (CLI) | payer MEDICAID ==
--- NOTE | 2022-01-16 10:51 | CA ---
Exercise Stress Test Report Name: Imtiaz Buck Exam Date: 01/16/2022 09:18 Exam Location: [facility] Stress Ht (in): 71 Wt (lb): 211 BSA: 2.16 Ordering Phys: Lynne Adams MD Referring Phys: YVONNE, Technologist: Mehul Devine Age: 61 Gender: M : 1960 Procedure CPT: Indications: I25.10 ATHSCL HEART DISEASE OF [place] CORONARY ART ICD-10 Codes: Patient History: Medications: SEE LIST Meds past 24 hrs: Pretest Chest Pain: STRESS TEST Ramsey Protocol Exercise Duration (min:sec): 09:[address] Depressions (mm): Angina Score: Whitney Score: Resting HR (bpm): 63 Peak HR (bpm): 150 Resting BP (mmHg): 145 / 88 Peak BP (mmHg): 205 / 81 MPHR: 161 Target HR: 137 % MPHR: 93 METS: 10.3 Total Dose: Peak Dose: Atropine: Double Product: 22919 BP Response: Stress Termination: TARGET HR REACHED/MAX EXERTION Stress Symptoms: NO SYMPTOMS Stress Summary: ECG ANALYSIS Resting ECG: Stress ECG: CONCLUSIONS Good exercise capacity on a Ramsey protocol, 9 minutes Peak heart rate 150 beats a minute, peak blood pressure 208/[address] depression 1 mm which resolved quickly into recovery Very occasional PVCs Nuclear portion will be reported separately Dr. Jere Olson MD (Electronically Signed) Final Date: 16 January 2022 10:50
--- NOTE | 2022-01-16 17:02 | NM ---
EXAMINATION TYPE: NM stress cardiolite complete DATE OF EXAM: 01/16/2022 COMPARISON: NONE HISTORY: Tobacco use and heart palpitations hypertension TECHNIQUE: After the intravenous administration of 10.2 mCi Tc 99m Sestamibi - Cardiolite resting SP ECT images . At peak stress 26.4 mCi Tc 99m Sestamibi - Stress images obtained. The patient was stressed on a treadmill reaching greater than 85% predicted maximum heart rate. FINDINGS: No fixed defects are evident And may be some mild diminished signal within the inferior wall on the stress images which has a norm al appearance on the resting images. This appears underrepresented on the polar map. Wall motion appe ars normal. Ejection fraction of 58% is normal. Very subtle dyskinesia near the cardiac base within the septal wall may be present. IMPRESSION: 1. There may be some subtle stress-induced ischemic change along the inferior wall, midportion. Corre late for EKG changes. 2. Mild dyskinesia of the septal wall near the cardiac base may be present. 3. Stress myocardial study otherwise appears within normal limits
== END | disposition home or self-care (01) ==
LOC: RADNMMAIN 07:37
PROVIDERS: ATTEND Internal Medicine Interventional Cardiology
DX: I25.10 Atherosclerotic heart disease of native coronary artery without angina pectoris (principal)
CPT/HCPCS: 93017; 78452; A9500

== ENCOUNTER → 2023-12-24 | Outpatient (CLI) | payer MEDICAID ==
--- NOTE | 2023-12-24 12:06 | XR ---
EXAMINATION TYPE: XR cervical spine comp DATE OF EXAM: 12/24/2023 11:59 AM INDICATION: Patient age:Male; 63 years old; Reason for study: M54.2 CERVICALGIA; PHH. COMPARISON: Cervical spine radiograph 12/22/2019, MR cervical spine 01/26/2020 TECHNIQUE: The cervical spine was imaged in the frontal, bilateral oblique, lateral, and odontoid pro jections. FINDINGS: The osseous structures show normal alignment without evidence of an acute fracture. Postsurgical [place] ges with plating of the left clavicle. No significant disc space narrowing. Minimal anterior aspect s tenosis at C4-C5 and C5-C6. Mild to moderate narrowing of the neural foramen on the right at. Mild na rrowing on the left at C3-C4. Pedicles are intact. Soft tissues are within normal limits. The odonto id appears intact. Bilateral carotid bulb calcifications. IMPRESSION: 1. No fracture or dislocation. 2. Similar mild multilevel degenerative disc disease and facet arthropathy from prior study in 2019.
== END | disposition home or self-care (01) ==
LOC: RADXRWHC 11:39
PROVIDERS: ATTEND Internal Medicine Geriatric Medicine
DX: M50.30 Other cervical disc degeneration, unspecified cervical region (principal)
CPT/HCPCS: 72050

== ENCOUNTER 2024-05-28 08:42 | Day surgery (SDC) | payer MEDICAID ==
[2024-05-27 11:07] VITALS: BMI 24.4
[~2024-05-28 08:42] MED LIST changes: -LACTATED RINGERS 1,000 ML IV SCH
[2024-05-28] MEDS: IV FLUID CONTINUATION 1,000 ML IV ONE (09:13)
[2024-05-28 09:21] VITALS: TEMP 97.1
[2024-05-28] MEDS: LACTATED RINGERS 1,000 ML IV SCH (09:35)
[2024-05-28 09:36] LABS: Glucose,Whole Blood 106 mg/dL (70-110)
[2024-05-28] MEDS ORDERED: PROPOFOL 10 MG/ML 20 ML VIAL IV ONE (09:49)
--- NOTE | 2024-05-28 10:06 | P.PCN ---
Date of Procedure: 05/28/24 Procedure(s) Performed: BRIEF HISTORY: Patient is a 63-year-old pleasant white male scheduled for an elective colonoscopy as a part of valuation of diarrhea and rectal bleeding for the last 4 months duration. He has 3-4 bowel movements a day which are loose to watery in consistency with the patient blood in the stool. Symptoms started after he started on Ozempic about 6 months ago. PROCEDURE PERFORMED: Colonoscopy with biopsy. PREOPERATIVE DIAGNOSIS: Chronic diarrhea and rectal bleeding of 4 months duration. IV sedation per Anesthesia. PROCEDURE: After informed consent was obtained, the patient, was brought into the endoscopy unit. IV sedation was administered by Anesthesia under continuous monitoring. Digital rectal examination was normal. Initially the Olympus CF-160 flexible video colonoscope was then inserted in the rectum, gradually advanced into the cecum without any difficulty. Careful examination was performed as the scope was gradually being withdrawn. Ileocecal valve and the appendiceal orifice were visualized and appeared normal. Prep was excellent. The middle ileum was intubated and 10 cm visualized and appeared normal. Mucosa of the cecum, ascending colon, normal. There was moderate colitis involving the distal transverse colon, descending colon, sigmoid colon, and rectum with mucosal erythema friability granularity and spontaneous bleeding all consistent with ulcerative colitis and multiple biopsies were done from this area. Scattered sigmoid diverticulosis seen. Retroflexion was performed the rectum and no lesions were noted and the patient tolerated the procedure well. IMPRESSION: Moderate colitis involving the left colon all the way from rectum to distal transverse colon up to 70 cm from the anal verge with mucosal erythema, friability, granularity and spontaneous oozing consistent with ulcerative colitis status post multiple biopsies Right colon and terminal ileum appeared normal Scattered sigmoid diverticulosis RECOMMENDATIONS: Findings of this examination were discussed with the patient as well as his family. He was advised to follow-up with the biopsy results.. Follow-up in the office in 1 to 2 weeks
[2024-05-28 10:37] VITALS: BP 105/67; PULSE 70; RESP 18
== END 2024-05-28 10:52 | disposition home or self-care (01) ==
LOC: ORWHC2ENDO 08:42
PROVIDERS: ATTEND Internal Medicine Gastroenterology
DX: K51.90 Ulcerative colitis, unspecified, without complications (principal); K52.9 Noninfective gastroenteritis and colitis, unspecified; K57.31 Diverticulosis of large intestine without perforation or abscess with bleeding; I10 Essential (primary) hypertension; E78.5 Hyperlipidemia, unspecified; I25.10 Atherosclerotic heart disease of native coronary artery without angina pectoris; G47.33 Obstructive sleep apnea (adult) (pediatric); E11.9 Type 2 diabetes mellitus without complications; Z79.82 Long term (current) use of aspirin; Z79.899 Other long term (current) drug therapy; Z90.89 Acquired absence of other organs; Z79.84 Long term (current) use of oral hypoglycemic drugs
CPT/HCPCS: 88305; 45380; J2704

== ENCOUNTER → 2024-06-30 | Outpatient (CLI) | payer MEDICAID ==
[2024-06-30 16:51] LABS: ALT 36 U/L (10-49); AST 17 U/L (14-35); Albumin 4.2 g/dL (3.8-4.9); Albumin/Globulin Ratio 1.75 Ratio (1.60-3.17); Alkaline Phosphatase 63 U/L (41-126); Blood Urea Nitrogen 19.6 mg/dL (9.0-27.0); C Reactive Protein <0.30 mg/dL (0.00-0.80); Calcium 9.7 mg/dL (8.7-10.3); Carbon Dioxide 24.5 mmol/L (21.6-31.8); Chloride 101 mmol/L (96-109); Globulin 2.4 g/dL (1.6-3.3); Glucose 186 mg/dL (70-110); Potassium 4.6 mmol/L (3.5-5.5); Sodium 138 mmol/L (135-145); Total Bilirubin 1.5 mg/dL (0.3-1.2); Total Protein 6.6 g/dL (6.2-8.2)
[2024-06-30 17:18] LABS: Basophils # (A) 0.04 X 10*3/uL (0.00-0.10); Basophils % (A) 0.4 %; Eosinophils # (A) 0.27 X 10*3/uL (0.04-0.35); HGB 15.4 g/dL (13.0-17.0); Lymphocytes # (A) 1.15 X 10*3/uL (0.90-5.00); Lymphocytes % (A) 12.8 %; MCH 29.8 pg (27.0-32.0); MCHC 32.8 g/dL (32.0-37.0); MCV 91.1 FL (80.0-97.0); Mean Platelet Volume 10.2 FL (9.5-12.2); Monocytes # (A) 0.61 X 10*3/uL (0.20-1.00); Monocytes % (A) 6.8 %; NRBC Per 100 WBC 0 X 10*3/uL (0.00-0.01); Neutrophils # (A) 6.85 X 10*3/uL (1.80-7.70); Neutrophils % (A) 76.4 %; Platelet Count 191 X 10*3/uL (140-440); RBC 5.16 X 10*6/uL (4.40-5.60); RDW 13.3 % (11.5-14.5); WBC 8.97 X 10*3/uL (4.50-10.00)
[2024-06-30 17:36] LABS: Erythrocyte Sedimentation Rate 8 mm/Hr (0-20)
== END | disposition home or self-care (01) ==
LOC: LABWHC1 09:05
PROVIDERS: ATTEND Internal Medicine Gastroenterology
DX: K51.90 Ulcerative colitis, unspecified, without complications (principal)
CPT/HCPCS: 36415; 80053; 85025; 85652; 86140

== ENCOUNTER → 2024-11-02 | Outpatient (CLI) | payer MEDICAID ==
[2024-11-02 15:51] LABS: ALT 32 U/L (10-49); AST 18 U/L (14-35); LDL Cholesterol,Calculated 47.9 mg/dL (0.0-131.0); VLDL Calculation 11.24 mg/dL (5.00-40.00)
== END | disposition home or self-care (01) ==
LOC: LABWHC1 07:20
PROVIDERS: ATTEND Nurse Practitioner Adult Health
DX: E78.2 Mixed hyperlipidemia (principal)
CPT/HCPCS: 36415; 80061; 84450; 84460

== ENCOUNTER → 2024-12-09 | Outpatient (CLI) | payer MEDICAID ==
--- NOTE | 2024-12-09 11:10 | CA ---
Exercise Nuclear Stress Test Report Name: Imtiaz Buck Exam Date: 12/09/2024 09:30 Exam Location: [facility] Ht (in): 71 Wt (lb): 178 BSA: 2.01 Ordering Phys: Lynne Adams MD Referring Phys: Tami Alcantar [facility] Technologist: Mehul Devine Age: 64 Gender: M : 1960 Procedure CPT: Indications: I25.10 ATHSCL HEART DISEASE OF [place] CORONARY ART ICD-10 Codes: Patient History: Medications: ASPIRIN, LISINOPRIL, JARDIANCE, MESALAMINE, EZETIMIBE, ATORVASTATIN, METOPROLOL, OZEMPIC Meds past 24 hrs: Pretest Chest Pain: STRESS TEST Ramsey Protocol Exercise Duration (min:sec): 09:[address] Depressions (mm): Angina Score: Whitney Score: Resting HR (bpm): 62 Peak HR (bpm): 140 Resting BP (mmHg): 144 / 77 Peak BP (mmHg): 185 / 82 MPHR: 158 Target HR: 134 % MPHR: 89 METS: 10.3 Total Dose: Peak Dose: Atropine: Double Product: 58348 BP Response: Stress Termination: TARGET HR REACHED/MAX EXERTION Stress Symptoms: NO SYMPTOMS Stress Summary: ECG ANALYSIS Resting ECG: Normal sinus rhythm Stress ECG: No significant ST-T wave changes that are concerning for ischemia. There were no sustained arrhythmias. There were occasional premature ventricle contraction noticed during peak stress activity. CONCLUSIONS Good exercise tolerance for age achieving 10.3 METS Nonischemic ECG response to treadmill exercise Normal hemodynamic and clinical response to treadmill exercise Please refer to the nuclear portion of the stress test for the complete interpretation of the study Dr Jacinto Leigh (Electronically Signed) Final Date: 09 December 2024 11:09
--- NOTE | 2024-12-09 21:29 | NM ---
EXAMINATION TYPE: NM stress cardiolite complete DATE OF EXAM: 12/09/2024 COMPARISON: NONE CLINICAL INDICATION: Male, 64 years old with history of I25.10 ATHSCL HEART DISEASE OF [place] CORONAR Y ART, TECHNIQUE: After the intravenous administration of 9.9 mCi Tc 99m Sestamibi - Cardiolite resting SPE CT images acquired 45 minutes post injection. At peak stress 26.0 mCi Tc 99m Sestamibi - Stress images obtained 5 minutes post injection The patient was stressed with 0.4mg Lexiscan. FINDINGS: No fixed defects are evident. No reversible stress defects on Spect images. Previous inferior wall subtle stress changes not identi fied on current exam Wall motion is normal. Ejection fraction is calculated to be 61 %. IMPRESSION: 1. No stress-induced ischemic change. [facility], , 12/09/2024 9:27 PM
== END | disposition home or self-care (01) ==
LOC: RADNMMAIN 07:29
PROVIDERS: ATTEND Internal Medicine Interventional Cardiology
DX: I25.10 Atherosclerotic heart disease of native coronary artery without angina pectoris (principal)
CPT/HCPCS: 93017; 78452; A9500

== ENCOUNTER → 2025-01-12 | Outpatient (CLI) | payer MEDICAID ==
--- NOTE | 2025-01-12 18:59 | CA ---
Transthoracic Echo Report Name: Imtiaz Buck Age: 64 Gender: M : 1960 Exam Date: 01/12/2025 11:18 Exam Location: [facility] Ht (in): 72 Wt (lb): 180 Ordering Physician: Lynne Adams MD ([id number]) Attending/Referring Phys: Tami Alcantar [facility] [employer] Soup Emili Rodriguez RDCS Procedure CPT: Indications: I25.10 ATHSCL HEART DISEASE OF [place] CORONARY ART Cardiac Hx: Technical Quality: Contrast 1: Total Dose (mL): Contrast 2: Total Dose (mL): MEASUREMENTS (Male / Female) Normal Values 2D ECHO LV Diastolic Diameter PLAX 5.0 cm 4.2 - 5.9 / 3.9 - 5.3 cm LV Systolic Diameter PLAX 3.2 cm IVS Diastolic Thickness 1.4 cm 0.6 - 1.0 / 0.6 - 0.9 cm LVPW Diastolic Thickness 1.0 cm 0.6 - 1.0 / 0.6 - 0.9 cm LV Relative Wall Thickness 0.5 RV Internal Dim ED PLAX 3.2 cm LA Systolic Diameter LX 3.8 cm 3.0 - 4.0 / 2.7 - 3.8 cm LV Diastolic Volume MOD 4C 91.3 cm??? LV Systolic Volume MOD 4C 40.6 cm??? LV Ejection Fraction MOD 4C 55.5 % LV Diastolic Length 4C 8.6 cm LV Systolic Length 4C 7.4 cm LV Diastolic Volume MOD 2C 87.9 cm??? LV Systolic Volume MOD 2C 38.5 cm??? LV Ejection Fraction MOD 2C 56.3 % LV Diastolic Length 2C 8.8 cm LV Systolic Length 2C 7.3 cm M-MODE Aortic Root Diameter MM 3.0 cm LA Systolic Diameter MM 2.3 cm LA Ao Ratio MM 0.8 DOPPLER AV Peak Velocity 153.4 cm/s AV Peak Gradient 9.4 mmHg Mitral E Point Velocity 61.6 cm/s Mitral A Point Velocity 77.2 cm/s Mitral E to A Ratio 0.8 MV Deceleration Time 319.7 ms FINDINGS Left Ventricle Left ventricular ejection fraction is estimated at 55-60 %. Left ventricular cavity size normal. Mildly increased septal wall thickness. No obvious regional wall motion abnormalities. Right Ventricle Normal right ventricular size. Unable to estimate the right ventricular systolic pressure. Right Atrium Normal right atrial size. No right atrial thrombus or mass seen. Left Atrium Normal left atrial size. No left atrial thrombus or mass present. Mitral Valve Structurally normal mitral valve. No evidence for mitral valve prolapse. No mitral stenosis. Trace to mild mitral regurgitation. Aortic Valve Trileaflet aortic valve. No aortic valve stenosis or regurgitation. Tricuspid Valve Structurally normal tricuspid valve. No tricuspid stenosis, regurgitation or prolapse. Pulmonic Valve Structurally normal pulmonic valve. No pulmonic regurgitation. Pericardium No pericardial effusion. Aorta Normal size aortic root and proximal ascending aorta. CONCLUSIONS 1. Normal left ventricular size and systolic function 2. Trace to mild mitral regurgitation Previewed by: Dr. Lynne Adams MD (Electronically Signed) Final Date: 12 January 2025 18:58
== END | disposition home or self-care (01) ==
LOC: RADECHMAIN 10:57
PROVIDERS: ATTEND Internal Medicine Interventional Cardiology
DX: I25.10 Atherosclerotic heart disease of native coronary artery without angina pectoris (principal); I34.0 Nonrheumatic mitral (valve) insufficiency
CPT/HCPCS: 93306